=== PATIENT | male | born 1975 ===

== ENCOUNTER 2020-06-25 09:20 | Outpatient (REF) | payer BC, SELFPAY ==
[2020-06-25 11:21] LABS: MANUAL DIFF FLAG NO
[2020-06-25 11:42] LABS: Basophils Absolute Auto 0.1 X10*3/uL (0.0-0.2); Basophils Percent Auto 0.6 % (0-2); Eosinophils Absolute Auto 0.1 X10*3/uL (0.0-0.4); Eosinophils Percent Auto 0.7 % (0-4); Hematocrit 48.6 % (42-52); Hemoglobin 16.1 g/dl (14.0-18.0); Imm Gran Pct Auto 0.6 % (0.0-0.4); Lymphocytes Absolute Auto 3.2 X10*3/uL (1.2-4.9); Lymphocytes Percent Auto 19.6 % (20-40); Mean Corpuscular HGB Conc 33.1 g/dl (31.0-36.0); Mean Corpuscular Hemoglobin 29.1 pg (27.0-33.0); Mean Corpuscular Volume 87.7 fL (80-98); Mean Platelet Volume 11.9 fL (9.4-12.4); Monocytes Absolute Auto 0.9 X10*3/uL (0.1-1.2); Monocytes Percent Auto 5.8 % (2-11); Neutrophils Absolute Auto 11.7 X10*3/uL (2.0-8.3); Neutrophils Percent Auto 72.7 % (45-73); Platelet Count 226 X10*3/uL (160-400); Red Blood Count 5.54 X10*6/uL (4.60-5.80); Red Cell Distribution Width 13.5 % (11.0-16.0); White Blood Count 16.1 X10*3/uL (4.8-10.8)
[2020-06-25 12:09] LABS: Alanine Aminotransferase 15 U/L (0-40); Albumin Level 4.6 g/dL (3.5-5.0); Alkaline Phosphatase 82 U/L (39-117); Anion Gap 12 (12-20); Aspartate Amino Transferase 17 U/L (5-37); Bilirubin Direct < 0.2 mg/dL (0.0-0.5); Bilirubin Total 0.5 mg/dL (0.0-1.0); Blood Urea Nitrogen 19 mg/dL (9-16); Carbon Dioxide 28 mmol/L (22-29); Chloride 105 mmol/L (96-108); Cholesterol 242 mg/dL; Estimated Glomerular Filt Rate > 60; Glucose Fasting 106 mg/dL (60-99); HDL Cholesterol 38 mg/dL; LDL Cholesterol Calculated 172 mg/dl; Potassium 4.1 mmol/L (3.3-5.1); Sodium 141 mmol/L (135-145); Total Protein 6.8 g/dL (6.5-8.0); Triglycerides 163 mg/dL
[2020-06-25 12:30] LABS: Prostate Specific Antigen 0.66 ng/mL (<0.05-4.0); TSH reflex Free T4 0.95 uIU/mL (0.32-4.0)
== END 2020-06-25 09:21 | disposition home or self-care (01) ==
LOC: HO.HMGCLDS 09:20
PROVIDERS: PCP Internal Medicine; Visit Provider Internal Medicine
DX: I10 Essential (primary) hypertension (principal); R39.198 Other difficulties with micturition; R00.0 Tachycardia, unspecified; F41.9 Anxiety disorder, unspecified; Z76.89 Persons encountering health services in other specified circumstances; Z12.5 Encounter for screening for malignant neoplasm of prostate
CPT/HCPCS: 36415; 80048; 80061; 80076; 84153; 84443; 85025

== ENCOUNTER 2021-09-25 10:02 | Outpatient (REF) | payer BC, SELFPAY ==
[2021-09-25 11:11] LABS: MANUAL DIFF FLAG NO
[2021-09-25 11:35] LABS: Appearance Urine HAZY; Color Urine YELLOW; Glucose Urine UA NEG (NEG); Leukocyte Esterase Urine NEG (NEG); Nitrite Urine NEG (NEG); Specific Gravity - Urine 1.015 (1.005-1.025); UACC Culture Trigger NO; Urine Blood TRACE (NEG); Urine Ketones NEG (NEG); Urine Protein NEG (NEG-TRACE)
[2021-09-25 11:39] LABS: Basophils Absolute Auto 0.1 X10*3/uL (0.0-0.2); Basophils Percent Auto 0.7 % (0-2); Eosinophils Absolute Auto 0.2 X10*3/uL (0.0-0.4); Eosinophils Percent Auto 1.2 % (0-4); Hematocrit 44.2 % (42.0-52.0); Hemoglobin 14.5 g/dl (14.0-18.0); Imm Gran Abs Auto 0.05 X10*3/uL (0.00-0.03); Imm Gran Pct Auto 0.3 % (0.0-0.4); Lymphocytes Absolute Auto 3.3 X10*3/uL (1.2-4.9); Lymphocytes Percent Auto 22.1 % (20-40); Mean Corpuscular HGB Conc 32.8 g/dl (31.0-36.0); Mean Corpuscular Hemoglobin 28.5 pg (27.0-33.0); Mean Platelet Volume 11.7 fL (9.4-12.4); Monocytes Absolute Auto 1.2 X10*3/uL (0.1-1.2); Monocytes Percent Auto 7.7 % (2-11); Neutrophils Absolute Auto 10.1 x10*3/uL (2.0-8.3); Platelet Count 224 X10*3/uL (160-400); Red Blood Count 5.08 X10*6/uL (4.60-5.80); Red Cell Distribution Width 13.8 % (11.0-16.0); White Blood Count 14.9 X10*3/uL (4.8-10.8)
[2021-09-25 12:14] LABS: Mucus Urine 1+ /LPF; Squamous Epithelial Cell Urine TRACE /LPF; WBC Urine 0-2 /HPF (0-4)
[2021-09-25 12:18] LABS: Alanine Aminotransferase 29 U/L (0-40); Albumin Level 4.3 g/dL (3.5-5.0); Alkaline Phosphatase 78 U/L (39-117); Anion Gap 11 (12-20); Aspartate Amino Transferase 39 U/L (5-37); Bilirubin Total 0.2 mg/dL (0.0-1.0); Blood Urea Nitrogen 12 mg/dL (9-16); Calcium 9.4 mg/dL (8.4-10.2); Carbon Dioxide 27 mmol/L (22-29); Chloride 105 mmol/L (96-108); Cholesterol 225 mg/dL; Estimated Glomerular Filt Rate > 60; Glucose Fasting 109 mg/dL (60-99); HDL Cholesterol 36 mg/dL; LDL Cholesterol Calculated 166 mg/dl; Potassium 3.8 mmol/L (3.3-5.1); Sodium 139 mmol/L (135-145); Total Protein 6.5 g/dL (6.5-8.0); Triglycerides 117 mg/dL
[2021-09-25 12:26] LABS: Prostate Specific Antigen 0.42 ng/mL (<0.05-4.0); TSH reflex Free T4 0.92 uIU/mL (0.32-4.0)
== END 2021-09-25 10:03 | disposition home or self-care (01) ==
LOC: HO.HMGCLDS 10:02
PROVIDERS: PCP Internal Medicine; Visit Provider Internal Medicine
DX: Z12.5 Encounter for screening for malignant neoplasm of prostate (principal); F41.9 Anxiety disorder, unspecified; I10 Essential (primary) hypertension; R00.0 Tachycardia, unspecified; R39.198 Other difficulties with micturition
CPT/HCPCS: 36415; 80053; 80061; 81001; 84153; 84443; 85025

== ENCOUNTER 2022-01-08 08:30 | Outpatient (REF) | payer BC, SELFPAY ==
[2022-01-08 11:49] LABS: Estimated Average Glucose 100 mg/dL; Hemoglobin A1c % 5.1 %
[2022-01-08 12:00] LABS: Alanine Aminotransferase 22 U/L (0-40); Albumin Level 4.4 g/dL (3.5-5.0); Alkaline Phosphatase 80 U/L (39-117); Anion Gap 13 (12-20); Aspartate Amino Transferase 21 U/L (5-37); Bilirubin Total 0.3 mg/dL (0.0-1.0); Blood Urea Nitrogen 14 mg/dL (9-16); Calcium 9.6 mg/dL (8.4-10.2); Carbon Dioxide 26 mmol/L (22-29); Chloride 104 mmol/L (96-108); Cholesterol 132 mg/dL; Estimated Glomerular Filt Rate > 60; Glucose Fasting 103 mg/dL (60-99); HDL Cholesterol 34 mg/dL; LDL Cholesterol Calculated 81 mg/dl; Potassium 4.1 mmol/L (3.3-5.1); Sodium 139 mmol/L (135-145); Total Protein 6.7 g/dL (6.5-8.0); Triglycerides 89 mg/dL
== END 2022-01-08 08:31 | disposition home or self-care (01) ==
LOC: HO.HMGCLDS 08:30
PROVIDERS: PCP Internal Medicine; Visit Provider Internal Medicine
DX: E78.9 Disorder of lipoprotein metabolism, unspecified (principal); I10 Essential (primary) hypertension; R73.03 Prediabetes
CPT/HCPCS: 36415; 80053; 80061; 83036

== ENCOUNTER 2022-08-21 09:54 | Outpatient (REF) | payer BC, SELFPAY ==
[2022-08-21 11:04] LABS: MANUAL DIFF FLAG NO
[2022-08-21 11:46] LABS: Basophils Absolute Auto 0.1 X10*3/uL (0.0-0.2); Basophils Percent Auto 0.7 % (0-2); Eosinophils Absolute Auto 0.2 X10*3/uL (0.0-0.4); Eosinophils Percent Auto 1.2 % (0-4); Hematocrit 47.7 % (42.0-52.0); Hemoglobin 15.8 g/dl (14.0-18.0); Imm Gran Abs Auto 0.06 X10*3/uL (0.00-0.03); Imm Gran Pct Auto 0.4 % (0.0-0.4); Lymphocytes Percent Auto 26.4 % (20-40); Mean Corpuscular HGB Conc 33.1 g/dl (31.0-36.0); Mean Corpuscular Hemoglobin 29.5 pg (27.0-33.0); Mean Platelet Volume 11.6 fL (9.4-12.4); Monocytes Percent Auto 6.5 % (2-11); Neutrophils Absolute Auto 9.7 x10*3/uL (2.0-8.3); Neutrophils Percent Auto 64.8 % (45-73); Platelet Count 221 X10*3/uL (160-400); Red Blood Count 5.36 X10*6/uL (4.60-5.80); Red Cell Distribution Width 13.4 % (11.0-16.0)
[2022-08-21 11:55] LABS: Estimated Average Glucose 105 mg/dL; Hemoglobin A1c % 5.3 %
[2022-08-21 12:15] LABS: Anion Gap 11 (12-20)
[2022-08-21 12:49] LABS: Alanine Aminotransferase 19 U/L (0-40); Albumin Level 4.6 g/dL (3.5-5.0); Alkaline Phosphatase 85 U/L (39-117); Aspartate Amino Transferase 18 U/L (5-37); Bilirubin Total 0.4 mg/dL (0.0-1.0); Blood Urea Nitrogen 18 mg/dL (9-16); Calcium 9.3 mg/dL (8.4-10.2); Carbon Dioxide 28 mmol/L (22-29); Chloride 107 mmol/L (96-108); Cholesterol 129 mg/dL; Estimated Glomerular Filt Rate > 60; Glucose Fasting 113 mg/dL (60-99); HDL Cholesterol 33 mg/dL; LDL Cholesterol Calculated 79 mg/dl; Potassium 4.8 mmol/L (3.3-5.1); Sodium 141 mmol/L (135-145); Total Protein 6.7 g/dL (6.5-8.0); Triglycerides 88 mg/dL
== END 2022-08-21 09:55 | disposition home or self-care (01) ==
LOC: HO.HMGCLDS 09:54
PROVIDERS: PCP Internal Medicine; Visit Provider Internal Medicine
DX: E78.9 Disorder of lipoprotein metabolism, unspecified (principal); F41.9 Anxiety disorder, unspecified; R73.03 Prediabetes; I10 Essential (primary) hypertension
CPT/HCPCS: 36415; 80053; 80061; 83036; 85025

== ENCOUNTER 2022-10-07 09:28 | Outpatient (REF) | payer BC, SELFPAY ==
[2022-10-07 11:26] LABS: MANUAL DIFF FLAG NO
[2022-10-07 11:31] LABS: Basophils Absolute Auto 0.2 X10*3/uL (0.0-0.2); Eosinophils Absolute Auto 0.2 X10*3/uL (0.0-0.4); Hematocrit 45.8 % (42.0-52.0); Imm Gran Abs Auto 0.07 X10*3/uL (0.00-0.03); Imm Gran Pct Auto 0.5 % (0.0-0.4); Lymphocytes Absolute Auto 3.5 X10*3/uL (1.2-4.9); Lymphocytes Percent Auto 22.7 % (20-40); Mean Corpuscular HGB Conc 32.8 g/dl (31.0-36.0); Mean Corpuscular Hemoglobin 29.4 pg (27.0-33.0); Mean Corpuscular Volume 89.8 fL (80.0-98.0); Mean Platelet Volume 11.9 fL (9.4-12.4); Monocytes Absolute Auto 1.2 X10*3/uL (0.1-1.2); Monocytes Percent Auto 7.6 % (2-11); Neutrophils Absolute Auto 10.4 x10*3/uL (2.0-8.3); Neutrophils Percent Auto 67.2 % (45-73); Platelet Count 216 X10*3/uL (160-400); Red Cell Distribution Width 13.7 % (11.0-16.0); White Blood Count 15.4 X10*3/uL (4.8-10.8)
== END 2022-10-07 09:29 | disposition home or self-care (01) ==
LOC: HO.HMGCLDS 09:28
PROVIDERS: PCP Internal Medicine; Visit Provider Internal Medicine
DX: D72.829 Elevated white blood cell count, unspecified (principal)
CPT/HCPCS: 36415; 85025

== ENCOUNTER → 2022-11-10 12:36 | Outpatient (BNV) | payer BC, SELFPAY | PROVIDERS: PCP Internal Medicine; Visit Provider Internal Medicine | DX: D72.829 Elevated white blood cell count, unspecified (principal) | CPT/HCPCS: 99204; 99213 ==

== ENCOUNTER 2023-01-27 09:49 | Outpatient (AMB) | payer BC, SELFPAY ==
[2023-01-27 09:51] VITALS: BP 136/72; PULSE 69; O2SAT 98; BMI 27.5
--- NOTE | 2023-01-27 09:51 | A.OFFPC_ITS ---
Vital Signs 01/27/23 09:51 Height 5 ft 10 in Weight 192 lb BMI 27.5 BP 136/72 Blood Pressure Location Lt brachial Position Sitting Pulse 69 Pulse Source Pulse Oximeter Pulse Oximetry (%) 98 Oxygen Delivery Method Room Air Intake Visit Reasons: 3 month follow up Allergies No Known Allergies [No Known Allergies*] Allergy (Verified 01/27/23 09:52) Medication List - Last Reconciled 01/27/23 by Micah Alvarez MD atenolol 25 mg PO DAILY 90 days escitalopram oxalate (Lexapro) 10 mg PO DAILY rosuvastatin 40 mg PO DAILY 90 days Tobacco use date assessed: 01/27/23 Dental Screening Dental Screen Date: 01/27/23 Did you have a dental visit in the last 12 months?: No Did you have a dental problem in the last 6 months where you did not have access to dental care?: No Was dental information given to patient?: Patient has dentist HPI 3 month follow up HPI Details Patient is 47-year-old gentleman came in today for his regular follow- up appointment Patient is trying to cut down on smoking currently he is smoking 7 cigarettes a day. Patient says that he never had any history of smoking cold pack for more than 30 years. It is difficult but he is working on it and gradually cutting down on smoking. He has tried other methods which have failed. Blood pressure is stable patient is on atenolol 25 mg tolerating medications, no side effects. Anxiety: Stable with Lexapro 10 mg Lipid disorder: Continue rosuvastatin 40 mg, he is due for labs. Leukocytosis: Patient has been evaluated by Hematology no cause was found for his chronic leukocytosis. Most likely secondary to smoking. Impaired fasting sugar: I would recommend continue diet control. Follow-up early May [facility] Surgical History History of tooth extraction Family History Maternal Grandfather Prostate CA Maternal Grandmother Dementia Alzheimer disease Depression Paternal Grandmother Dementia Alzheimer disease Sister Lupus Social History Household Members: Friend(s) Housing: House Alcohol intake: current Alcohol intake frequency: holidays/special occasions only Patient Tobacco Use Status: Current everyday Tobacco user Tobacco use type: Cigarette Cigarette Packs Per Day: 0.5 Years Smoked: 23 e-Cigarette/Vaping Use: Never Used service: No Current occupational status: employed Cognitive needs: No Hearing needs: No Vision needs: No Questionnaire PHQ-9 Over the last 2 weeks, how often have you been bothered by any of the following problems? 1. Little interest or pleasure in doing things: not at all 2. Feeling down, depressed, or hopeless: not at all 3. Trouble falling or staying asleep, or sleeping too much: several days 4. Feeling tired or having little energy: several days 5. Poor appetite or overeating: not at all 6. Feeling bad about yourself - or that you are a failure or have let yourself or your family down: not at all 7. Trouble concentrating on things, such as reading the newspaper or watching television: not at all 8. Moving or speaking so slowly that other people could have noticed. Or the opposite - being so fidgety or restless that you have been moving around a lot more than usual: not at all 9. Thoughts that you would be better off or of hurting yourself in some way: not at all Total score: 2 Depression Screening Interpretation: Negative 43741 - PHQ-9 Billing: Yes Source: Developed by Drs. Eduardo Cartwright, Swetha Tapia, Jackson Thrasher and colleagues, with an educational paula from [employer]. Thrive Questionnaire Date Thrive assessed: 01/27/23 I am a: Patient What is your living situation today?: I have a steady place to live Within the past 12 months, did the food you bought not last and you didn't have the money to get more?: Never true Within the past 12 months, did you worry whether your food would run out before you got money to buy more?: Never true Do you have trouble paying for medicines?: No Do you have trouble getting transportation to medical appointments?: No Do you have trouble paying your heating and electricity bill?: No Do you have trouble taking care of your child, family member or friend?: No Do you have trouble with day-to-day activities such as bathing, preparing meals, shopping, managing finances, etc.?: No Are you currently unemployed and looking for a job?: No Are you interested in more education?: No Please select the resources that you would like help with: None AUDIT C Alcohol Use Questionnaire (AUDIT-C) 1. How often do you have a drink containing alcohol?: Monthly or less 2. How many drinks containing alcohol do you have on a typical day when you are drinking?: 3 or 4 3. How often do you have six or more drinks on one occasion?: Never Total Score: 2 VINCENT-7 AMB Questionnaire VINECNT-7 Date VINCENT - 7 assessed: 01/27/23 Feeling nervous, anxious, or on edge: 1 = Several days Not being able to stop or control worryin = Not at all Worrying too much about different things: 0 = Not at all Trouble relaxin = Not at all Being so restless that it is hard to sit still: 0 = Not at all Becoming easily annoyed or irritable: 0 = Not at all Feeling afraid as if something awful might happen: 0 = Not at all Total VINCENT-7 score (0-4 normal; 5-9 mild; 10-14 moderate; 15-21 severe): 1 Source: Developed by Drs. Eduardo Cartwright, Swetha Tapia, Jackson Thrasher and colleagues, with an educational paula from [employer]. VINCENT-7 Assessment Billing VINCENT-7 Assessment Tool: VINCENT-7 Assessment 68136 Review of Systems Const Denies chills and Denies fever(s) ENT Denies epistaxis and Denies nasal discharge Card Denies chest pain Resp Denies chest congestion, Denies cough and Denies hemoptysis GI Denies diarrhea and Denies nausea Skin/Breast Denies rash Neuro Reports no additional complaints Psych Reports no additional complaints Endo Reports no additional complaints Physical exam (Primary Care) Vital Signs: Last Vital Signs Pulse 69 01/27/23 09:51 BP 136/72 01/27/23 09:51 Pulse Ox 98 01/27/23 09:51 Oxygen Delivery Method Room Air 01/27/23 09:51 BMI result Body Mass Index 27.5 Tobacco/Smoking Status: Tobacco use Status Tobacco use date assessed 01/27/23 01/27/23 09:52 Patient Tobacco Use Status Current everyday Tobacco 01/27/23 09:52 Tobacco use type Cigarette 01/27/23 09:52 e-Cigarette/Vaping Use Never Used 01/27/23 09:52 Are you ready to quit: Yes Tobacco cessation counseling provided: Yes Relapse Prevention: discussed the importance of a supportive environment and discussed dietary, exercise and/or lifestyle changes CPT code: 86003 - 4-10 Minutes PHQ-9: PHQ-9 Score PHQ-9: Total score 2 01/27/23 11:08 Depression Screening Interpretation: Negative Thrive Assessment: Date of Thrive Assessment Date Thrive assessed 01/27/23 01/27/23 10:23 Const General: cooperative, comfortable and no acute distress Orientation/consciousness: patient oriented x3 HENMT Head: Yes normocephalic Eyes General: appearance normal, both eyes and all related structures Neck Neck: Yes supple Resp Effort & Inspection: normal respiratory effort, no cough and no stridor Cardio Rhythm: regular rhythm Heart sounds: S1 normal heart sound present and S2 normal heart sound present Skin General skin exam: turgor normal Neuro General: patient oriented x3, tone normal and moves all extremities Extrem Right lower extremity: no edema Left lower extremity: no edema Assessment and Plan Assessment & Plan (1) Hypertension: Code(s): I10 - Essential (primary) hypertension Qualifiers: Hypertension type: primary hypertension Qualified Code(s): I10 - Essential (primary) hypertension (2) Anxiety: Code(s): F41.9 - Anxiety disorder, unspecified (3) Lipid disorder: Code(s): E78.9 - Disorder of lipoprotein metabolism, unspecified (4) Pre-diabetes: Code(s): R73.03 - Prediabetes (5) Tobacco use disorder: Code(s): F17.200 - Nicotine dependence, unspecified, uncomplicated (6) Leukocytosis: Code(s): D72.829 - Elevated white blood cell count, unspecified Qualifiers: Leukocytosis type: unspecified Qualified Code(s): D72.829 - Elevated white blood cell count, unspecified (7) Encounter for tobacco use cessation counseling: Code(s): Z71.6 - Tobacco abuse counseling Plan Patient is 47-year-old gentleman came in today for his regular follow-up appointment Patient is trying to cut down on smoking currently he is smoking 7 cigarettes a day. Patient says that he never had any history of smoking cold pack for more than 30 years. It is difficult but he is working on it and gradually cutting down on smoking. He has tried other methods which have failed. Blood pressure is stable patient is on atenolol 25 mg tolerating medications, no side effects. Anxiety: Stable with Lexapro 10 mg Lipid disorder: Continue rosuvastatin 40 mg, he is due for labs. Leukocytosis: Patient has been evaluated by Hematology no cause was found for his chronic leukocytosis. Most likely secondary to smoking. Impaired fasting sugar: I would recommend continue diet control. Follow-up early May Orders: Orders Hemoglobin A1c Today D72.829 - Elevated white blood cell count, unspecified, E78.9 - Disorder of lipoprotein metabolism, unspecified, F17.200 - Nicotine dependence, unspecified, uncomplicated, F41.9 - Anxiety disorder, unspecified, I10 - Essential (primary) hypertension, R73.03 - Prediabetes Complete Blood Count Auto Diff Today D72.829 - Elevated white blood cell count, unspecified, E78.9 - Disorder of lipoprotein metabolism, unspecified, F17.200 - Nicotine dependence, unspecified, uncomplicated, F41.9 - Anxiety disorder, unspecified, I10 - Essential (primary) hypertension, R73.03 - Prediabetes Comprehensive Met. Panel Today D72.829 - Elevated white blood cell count, unspecified, E78.9 - Disorder of lipoprotein metabolism, unspecified, F17.200 - Nicotine dependence, unspecified, uncomplicated, F41.9 - Anxiety disorder, unspecified, I10 - Essential (primary) hypertension, R73.03 - Prediabetes LDL Cholesterol Direct Today D72.829 - Elevated white blood cell count, unspecified, E78.9 - Disorder of lipoprotein metabolism, unspecified, F17.200 - Nicotine dependence, unspecified, uncomplicated, F41.9 - Anxiety disorder, unspecified, I10 - Essential (primary) hypertension, R73.03 - Prediabetes Coding Level of Care Code Est Pt Level 4 (19943) Diagnoses Primary hypertension I10 Hypertension type: primary hypertension Anxiety F41.9 Lipid disorder E78.9 Pre-diabetes R73.03 Tobacco use disorder F17.200 Leukocytosis, unspecified type D72.829 Leukocytosis type: unspecified Encounter for tobacco use cessation counseling Z71.6 Additional Codes VINCENT-7 Assessment Billing - VINCENT-7 Assessment Tool: VINCENT-7 Assessment 26044 ([id number]) Vital Signs *Quality* - CPT code: 69606 - 4-10 Minutes ([id number])
== END 2023-01-27 10:18 | disposition home or self-care (01) ==
PROVIDERS: PCP Internal Medicine; Visit Provider Internal Medicine
DX: I10 Essential (primary) hypertension (principal); F41.9 Anxiety disorder, unspecified; E78.9 Disorder of lipoprotein metabolism, unspecified; R73.03 Prediabetes; F17.200 Nicotine dependence, unspecified, uncomplicated; D72.829 Elevated white blood cell count, unspecified; Z71.6 Tobacco abuse counseling
CPT/HCPCS: 99214

== ENCOUNTER 2023-02-17 11:32 | Outpatient (REF) | payer BC, SELFPAY ==
[2023-02-17 13:30] LABS: MANUAL DIFF FLAG NO
[2023-02-17 13:54] LABS: Basophils Absolute Auto 0.1 X10*3/uL (0.0-0.2); Basophils Percent Auto 0.8 % (0-2); Eosinophils Absolute Auto 0.1 X10*3/uL (0.0-0.4); Eosinophils Percent Auto 0.7 % (0-4); Hemoglobin 15.9 g/dl (14.0-18.0); Imm Gran Abs Auto 0.08 X10*3/uL (0.00-0.03); Imm Gran Pct Auto 0.5 % (0.0-0.4); Lymphocytes Absolute Auto 3.9 X10*3/uL (1.2-4.9); Lymphocytes Percent Auto 26.4 % (20-40); Mean Corpuscular HGB Conc 33.8 g/dl (31.0-36.0); Mean Corpuscular Hemoglobin 30.1 pg (27.0-33.0); Mean Corpuscular Volume 88.8 fL (80.0-98.0); Mean Platelet Volume 11.5 fL (9.4-12.4); Monocytes Percent Auto 6.9 % (2-11); Neutrophils Absolute Auto 9.6 x10*3/uL (2.0-8.3); Neutrophils Percent Auto 64.7 % (45-73); Platelet Count 270 X10*3/uL (160-400); Red Blood Count 5.29 X10*6/uL (4.60-5.80); Red Cell Distribution Width 13.2 % (11.0-16.0); White Blood Count 14.8 X10*3/uL (4.8-10.8)
[2023-02-17 14:14] LABS: Alanine Aminotransferase 26 U/L (0-40); Albumin Level 4.5 g/dL (3.5-5.0); Alkaline Phosphatase 79 U/L (39-117); Anion Gap 13 (12-20); Aspartate Amino Transferase 22 U/L (5-37); Bilirubin Total 0.3 mg/dL (0.0-1.0); Blood Urea Nitrogen 13 mg/dL (9-16); Calcium 9.7 mg/dL (8.4-10.2); Carbon Dioxide 26 mmol/L (22-29); Chloride 107 mmol/L (96-108); Estimated Glomerular Filt Rate > 60; Glucose Random 107 mg/dL (60-115); Potassium 4.3 mmol/L (3.3-5.1); Sodium 142 mmol/L (135-145); Total Protein 7.1 g/dL (6.5-8.0)
[2023-02-17 14:26] LABS: Estimated Average Glucose 100 mg/dL; Hemoglobin A1c % 5.1 % (<6.0)
[2023-02-19 08:19] LABS: LDL Cholesterol Direct 88 mg/dL (<100)
== END 2023-02-17 11:33 | disposition home or self-care (01) ==
LOC: HO.HMGCLDS 11:32
PROVIDERS: PCP Internal Medicine; Visit Provider Internal Medicine
DX: I10 Essential (primary) hypertension (principal); F41.9 Anxiety disorder, unspecified; E78.9 Disorder of lipoprotein metabolism, unspecified; R73.03 Prediabetes; D72.829 Elevated white blood cell count, unspecified; F17.200 Nicotine dependence, unspecified, uncomplicated
CPT/HCPCS: 36415; 80053; 83036; 83721; 85025

== ENCOUNTER 2023-05-29 09:22 | Outpatient (AMB) | payer BC, SELFPAY ==
[2023-05-29 09:24] VITALS: BP 132/80; PULSE 96; O2SAT 98; BMI 28.6
--- NOTE | 2023-05-29 09:24 | MHC.PC.OV ---
Vital Signs 05/29/23 09:24 Height 5 ft 10 in Weight 199 lb BMI 28.6 BP 132/80 Blood Pressure Location Lt brachial Position Sitting Pulse 96 Pulse Source Pulse Oximeter Pulse Oximetry (%) 98 Oxygen Delivery Method Room Air Intake Visit Reasons: 3 month follow up Allergies No Known Allergies [No Known Allergies*] Allergy (Verified 05/29/23 09:24) Tobacco use date assessed: 05/29/23 Dental Screening Dental Screen Date: 05/29/23 Did you have a dental visit in the last 12 months?: No Did you have a dental problem in the last 6 months where you did not have access to dental care?: No Was dental information given to patient?: No HPI 3 month follow up HPI Details Patient is 48-year-old gentleman came in today for his regular follow-up appointment Tobacco use disorder: Patient has cut down to 6 cigarettes a day, we have set up another goal of getting down to 5 by the time his next appointment in September He will also need labs before his next appointment, order placed to be done fasting Blood pressure is stable patient is on atenolol 25 mg tolerating medications, no side effects. Anxiety: Stable with Lexapro 10 mg Lipid disorder: Continue rosuvastatin 40 mg, he is due for labs. Leukocytosis: Patient has been evaluated by Hematology no cause was found for his chronic leukocytosis. Most likely secondary to smoking. Impaired fasting sugar: I would recommend continue diet control. [facility] Surgical History History of tooth extraction Family History Maternal Grandfather Prostate CA Maternal Grandmother Dementia Alzheimer disease Depression Paternal Grandmother Dementia Alzheimer disease Sister Lupus Social History Household Members: Friend(s) Housing: House Alcohol intake: current Alcohol intake frequency: holidays/special occasions only Patient Tobacco Use Status: Current everyday Tobacco user Tobacco use type: Cigarette Cigarette Packs Per Day: 0.5 Years Smoked: 23 e-Cigarette/Vaping Use: Never Used service: No Current occupational status: employed Cognitive needs: No Hearing needs: No Vision needs: No Questionnaire PHQ-9 Over the last 2 weeks, how often have you been bothered by any of the following problems? 1. Little interest or pleasure in doing things: not at all 2. Feeling down, depressed, or hopeless: not at all 3. Trouble falling or staying asleep, or sleeping too much: not at all 4. Feeling tired or having little energy: several days 5. Poor appetite or overeating: not at all 6. Feeling bad about yourself - or that you are a failure or have let yourself or your family down: not at all 7. Trouble concentrating on things, such as reading the newspaper or watching television: not at all 8. Moving or speaking so slowly that other people could have noticed. Or the opposite - being so fidgety or restless that you have been moving around a lot more than usual: not at all 9. Thoughts that you would be better off or of hurting yourself in some way: not at all Total score: 1 Depression Screening Interpretation: Negative Depression Screening Done: Yes 10096 - PHQ-9 Billing: Yes Source: Developed by Drs. Eduardo Cartwright, Swetha Tapia, Jackson Thrasher and colleagues, with an educational paula from [employer]. Thrive Questionnaire Date Thrive assessed: 05/29/23 I am a: Patient What is your living situation today?: I have a steady place to live Within the past 12 months, did the food you bought not last and you didn't have the money to get more?: Never true Within the past 12 months, did you worry whether your food would run out before you got money to buy more?: Never true Do you have trouble paying for medicines?: No Do you have trouble getting transportation to medical appointments?: No Do you have trouble paying your heating and electricity bill?: No Do you have trouble taking care of your child, family member or friend?: No Do you have trouble with day-to-day activities such as bathing, preparing meals, shopping, managing finances, etc.?: No Are you currently unemployed and looking for a job?: No Are you interested in more education?: No Please select the resources that you would like help with: None Currently or been in a relationship where the following occur: no concerns reported THRIVE Score: 0 AUDIT C Alcohol Use Questionnaire (AUDIT-C) 1. How often do you have a drink containing alcohol?: Monthly or less 2. How many drinks containing alcohol do you have on a typical day when you are drinking?: 3 or 4 3. How often do you have six or more drinks on one occasion?: Never Total Score: 2 Score Reviewed/Action Taken: Yes VINCENT-7 AMB Questionnaire VINCENT-7 Date VINCENT - 7 assessed: 05/29/23 Feeling nervous, anxious, or on edge: 1 = Several days Not being able to stop or control worryin = Not at all Worrying too much about different things: 0 = Not at all Trouble relaxin = Not at all Being so restless that it is hard to sit still: 0 = Not at all Becoming easily annoyed or irritable: 0 = Not at all Feeling afraid as if something awful might happen: 0 = Not at all Total VINCENT-7 score (0-4 normal; 5-9 mild; 10-14 moderate; 15-21 severe): 1 Source: Developed by Drs. Eduardo Cartwright, Swetha Tapia, Jackson Thrasher and colleagues, with an educational paula from [employer]. VINCENT-7 Assessment Billing VINCENT-7 Assessment Tool: VINCENT-7 Assessment 42428 Review of Systems Const Denies chills and Denies fever(s) ENT Denies epistaxis and Denies nasal discharge Card Denies chest pain Resp Denies chest congestion, Denies cough and Denies hemoptysis GI Denies diarrhea and Denies nausea Skin/Breast Denies rash Neuro Reports no additional complaints Psych Reports no additional complaints Endo Reports no additional complaints Physical exam (Primary Care) Vital Signs: Last Vital Signs Pulse 96 05/29/23 09:24 BP 132/80 05/29/23 09:24 Pulse Ox 98 05/29/23 09:24 Oxygen Delivery Method Room Air 05/29/23 09:24 BMI result Body Mass Index 28.6 Tobacco/Smoking Status: Tobacco use Status Tobacco use date assessed 05/29/23 05/29/23 09:26 Patient Tobacco Use Status Current everyday Tobacco 05/29/23 09:26 Tobacco use type Cigarette 05/29/23 09:26 e-Cigarette/Vaping Use Never Used 05/29/23 09:26 Are you ready to quit: No Tobacco cessation counseling provided: Yes Items discussed: Other (Encouraged patient to keep reducing the amount he is smoking gradually and set up a new goal) PHQ-9: PHQ-9 Score PHQ-9: Total score 1 05/29/23 09:31 Depression Screening Interpretation: Negative Thrive Assessment: Date of Thrive Assessment Date Thrive assessed 05/29/23 05/29/23 09:31 Currently or been in a relationship where the following occur: no concerns reported Const General: cooperative, comfortable and no acute distress Orientation/consciousness: patient oriented x3 HENMT Head: Yes normocephalic Eyes General: appearance normal, both eyes and all related structures Neck Neck: Yes supple Resp Effort & Inspection: normal respiratory effort, no cough and no stridor Cardio Rhythm: regular rhythm Heart sounds: S1 normal heart sound present and S2 normal heart sound present Skin General skin exam: turgor normal Neuro General: patient oriented x3, tone normal and moves all extremities Extrem Right lower extremity: no edema Left lower extremity: no edema Assessment and Plan Assessment & Plan (1) Hypertension: Code(s): I10 - Essential (primary) hypertension Qualifiers: Hypertension type: primary hypertension Qualified Code(s): I10 - Essential (primary) hypertension (2) Lipid disorder: Code(s): E78.9 - Disorder of lipoprotein metabolism, unspecified (3) Pre-diabetes: Code(s): R73.03 - Prediabetes (4) Anxiety: Code(s): F41.9 - Anxiety disorder, unspecified (5) Leukocytosis: Code(s): D72.829 - Elevated white blood cell count, unspecified Qualifiers: Leukocytosis type: unspecified Qualified Code(s): D72.829 - Elevated white blood cell count, unspecified (6) Tobacco use disorder: Code(s): F17.200 - Nicotine dependence, unspecified, uncomplicated Plan Patient is 48-year-old gentleman came in today for his regular follow-up appointment Tobacco use disorder: Patient has cut down to 6 cigarettes a day, we have set up another goal of getting down to 5 by the time his next appointment in September He will also need labs before his next appointment, order placed to be done fasting Blood pressure is stable patient is on atenolol 25 mg tolerating medications, no side effects. Anxiety: Stable with Lexapro 10 mg Lipid disorder: Continue rosuvastatin 40 mg, he is due for labs. Leukocytosis: Patient has been evaluated by Hematology no cause was found for his chronic leukocytosis. Most likely secondary to smoking. Impaired fasting sugar: I would recommend continue diet control. Orders: Orders Complete Blood Count Auto Diff 5 Months D72.829 - Elevated white blood cell count, unspecified, E78.9 - Disorder of lipoprotein metabolism, unspecified, F17.200 - Nicotine dependence, unspecified, uncomplicated, F41.9 - Anxiety disorder, unspecified, I10 - Essential (primary) hypertension, R73.03 - Prediabetes Lipid Panel 5 Months D72.829 - Elevated white blood cell count, unspecified, E78.9 - Disorder of lipoprotein metabolism, unspecified, F17.200 - Nicotine dependence, unspecified, uncomplicated, F41.9 - Anxiety disorder, unspecified, I10 - Essential (primary) hypertension, R73.03 - Prediabetes Comprehensive [place]. Panel Fast 5 Months D72.829 - Elevated white blood cell count, unspecified, E78.9 - Disorder of lipoprotein metabolism, unspecified, F17.200 - Nicotine dependence, unspecified, uncomplicated, F41.9 - Anxiety disorder, unspecified, I10 - Essential (primary) hypertension, R73.03 - Prediabetes Coding Level of Care Code Est Pt Level 4 (30547) Diagnoses Primary hypertension I10 Hypertension type: primary hypertension Lipid disorder E78.9 Pre-diabetes R73.03 Anxiety F41.9 Leukocytosis, unspecified type D72.829 Leukocytosis type: unspecified Tobacco use disorder F17.200 Additional Codes VINCENT-7 Assessment Billing - VINCENT-7 Assessment Tool: VINCENT-7 Assessment 87694 ([id number])
== END 2023-05-29 12:01 | disposition home or self-care (01) ==
PROVIDERS: PCP Internal Medicine; Visit Provider Internal Medicine
DX: I10 Essential (primary) hypertension (principal); E78.9 Disorder of lipoprotein metabolism, unspecified; R73.03 Prediabetes; F41.9 Anxiety disorder, unspecified; D72.829 Elevated white blood cell count, unspecified; F17.210 Nicotine dependence, cigarettes, uncomplicated
CPT/HCPCS: 99214

== ENCOUNTER 2023-10-07 08:19 | Outpatient (REF) | payer BC, SELFPAY ==
[2023-10-07 10:26] LABS: MANUAL DIFF FLAG NO
[2023-10-07 10:41] LABS: Basophils Absolute Auto 0.1 X10*3/uL (0.0-0.2); Basophils Percent Auto 0.7 % (0-2); Eosinophils Absolute Auto 0.2 X10*3/uL (0.0-0.4); Eosinophils Percent Auto 1.4 % (0-4); Hematocrit 46.6 % (42.0-52.0); Hemoglobin 15.8 g/dl (14.0-18.0); Imm Gran Abs Auto 0.06 X10*3/uL (0.00-0.03); Imm Gran Pct Auto 0.4 % (0.0-0.4); Lymphocytes Absolute Auto 3.9 X10*3/uL (1.2-4.9); Lymphocytes Percent Auto 27.8 % (20-40); Mean Corpuscular HGB Conc 33.9 g/dl (31.0-36.0); Mean Corpuscular Hemoglobin 30.2 pg (27.0-33.0); Mean Corpuscular Volume 88.9 fL (80.0-98.0); Mean Platelet Volume 11.9 fL (9.4-12.4); Monocytes Absolute Auto 0.9 X10*3/uL (0.1-1.2); Monocytes Percent Auto 6.8 % (2-11); Neutrophils Absolute Auto 8.7 x10*3/uL (2.0-8.3); Neutrophils Percent Auto 62.9 % (45-73); Platelet Count 199 X10*3/uL (160-400); Red Blood Count 5.24 X10*6/uL (4.60-5.80); Red Cell Distribution Width 13.9 % (11.0-16.0); White Blood Count 13.9 X10*3/uL (4.8-10.8)
[2023-10-07 11:04] LABS: Alanine Aminotransferase 28 U/L (0-40); Albumin Level 4.4 g/dL (3.5-5.0); Alkaline Phosphatase 74 U/L (39-117); Anion Gap 10 (12-20); Aspartate Amino Transferase 26 U/L (5-37); Bilirubin Total 0.3 mg/dL (0.0-1.0); Blood Urea Nitrogen 15 mg/dL (9-16); Calcium 9.5 mg/dL (8.4-10.2); Carbon Dioxide 28 mmol/L (22-29); Chloride 106 mmol/L (96-108); Cholesterol 122 mg/dL (<200); Estimated Glomerular Filt Rate > 60; Glucose Fasting 127 mg/dL (60-99); HDL Cholesterol 35 mg/dL (>40); LDL Cholesterol Calculated 65 mg/dL (<100); Potassium 4.2 mmol/L (3.3-5.1); Sodium 140 mmol/L (135-145); Triglycerides 110 mg/dL (<150)
== END 2023-10-07 08:20 | disposition home or self-care (01) ==
LOC: HO.HMGCLDS 08:19
PROVIDERS: PCP Internal Medicine; Visit Provider Internal Medicine
DX: I10 Essential (primary) hypertension (principal); E78.9 Disorder of lipoprotein metabolism, unspecified; R73.03 Prediabetes; F41.9 Anxiety disorder, unspecified; D72.829 Elevated white blood cell count, unspecified; F17.200 Nicotine dependence, unspecified, uncomplicated
CPT/HCPCS: 36415; 80053; 80061; 85025

== ENCOUNTER 2023-10-09 09:51 | Outpatient (AMB) | payer BC, SELFPAY ==
--- NOTE | 2023-10-09 09:55 | A.OFFPC_ITS ---
Vital Signs 10/09/23 09:56 Height 5 ft 10 in Weight 192 lb BMI 27.5 BP 122/80 Blood Pressure Location Lt brachial Position Sitting Pulse 73 Pulse Source Pulse Oximeter Pulse Oximetry (%) 98 Oxygen Delivery Method Room Air Intake Visit Reasons: PE Allergies No Known Allergies [No Known Allergies*] Allergy (Verified 10/09/23 09:56) Medication List - Last Reconciled 10/09/23 by Micah Alvarez MD atenolol 25 mg PO DAILY 90 days escitalopram oxalate (Lexapro) 10 mg PO DAILY rosuvastatin 40 mg PO DAILY 90 days Tobacco use date assessed: 10/09/23 Dental Screening Dental Screen Date: 10/09/23 HPI PE HPI Details Patient is a 48-year-old gentleman came in today for physical exam Continued to smoke about 5 cigarettes daily, patient is working on it His blood pressure is controlled patient is on atenolol 25 mg Anxiety is stable with Lexapro 10 mg Patient is also on rosuvastatin 40 mg for lipid control He is prediabetic , fasting sugar 127, labs done this month Continued to leukocytosis, has been evaluated by Hematology already, and no cause was found Due for colonoscopy: Patient had Cologuard test done which was negative, he will think about colonoscopy for next year Follow-up 4 months [facility] Surgical History History of tooth extraction Family History Maternal Grandfather Prostate CA Maternal Grandmother Dementia Alzheimer disease Depression Paternal Grandmother Dementia Alzheimer disease Sister Lupus Social History Household Members: Friend(s) Housing: House Alcohol intake: current Alcohol intake frequency: holidays/special occasions only Patient Tobacco Use Status: Current everyday Tobacco user Tobacco use type: Cigarette Cigarette Packs Per Day: 0.5 Years Smoked: 23 e-Cigarette/Vaping Use: Never Used service: No Current occupational status: employed Cognitive needs: No Hearing needs: No Vision needs: No Questionnaire Thrive Questionnaire Date Thrive assessed: 05/29/23 VINCENT-7 AMB Questionnaire VINCENT-7 Date VINCENT - 7 assessed: 05/29/23 Source: Developed by Drs. Eduardo Cartwright, Swetha Tapia, Jackson Thrasher and colleagues, with an educational paula from [employer]. Review of Systems Const Denies chills, Denies fever(s) and Denies headache(s) Eyes Denies blurry vision ENT Denies headache(s), Denies nasal discharge, Denies nasal obstruction, Denies odynophagia and Denies sinus pain Card Denies chest pain at rest and Denies chest pain with activity Resp Denies cough and Denies hemoptysis GI Denies diarrhea, Denies odynophagia, Denies vomiting and Denies hematemesis Reports as per HPI Musc Denies abnormal gait Skin/Breast Reports as per HPI Neuro Denies Neuro-related abnormal movements, Denies Abnormal speech present, Denies abnormal gait, Denies headache(s) and Denies Sensory deficit (Neuro) Psych Denies mood swings and Denies paranoia Endo Reports as per HPI Simon/Lymph Reports as per HPI Aller/Immun Reports as per HPI Physical exam (Primary Care) Vital Signs: Last Vital Signs Pulse 73 10/09/23 09:56 BP 122/80 10/09/23 09:56 Pulse Ox 98 10/09/23 09:56 Oxygen Delivery Method Room Air 10/09/23 09:56 BMI result Body Mass Index 27.5 Tobacco/Smoking Status: Tobacco use Status Tobacco use date assessed 10/09/23 10/09/23 09:59 Patient Tobacco Use Status Current everyday Tobacco 10/09/23 09:56 Tobacco use type Cigarette 10/09/23 09:56 e-Cigarette/Vaping Use Never Used 10/09/23 09:56 Thrive Assessment: Date of Thrive Assessment Date Thrive assessed 05/29/23 10/09/23 09:56 Const General: cooperative, comfortable and no acute distress Orientation/consciousness: patient oriented x3 HENMT Head: Yes normocephalic and Yes atraumatic Eyes General: appearance normal, both eyes and all related structures Pupils: Equal, round and reactive pupils present EOM: EOMs intact bilaterally Neck Neck: Yes supple and No lymphadenopathy Thyroid: Thyroid normal Lymphatic: no lymphadenopathy noted Resp Effort & Inspection: normal respiratory effort and able to speak in complete sentences Auscultation: clear to auscultation bilaterally Cardio Heart sounds: S1 normal heart sound present and S2 normal heart sound present GI Palpation (GI): Soft to palpation and nontender Auscultation: normal bowel sounds General: Yes no CVA tenderness Back/Spine/Pelvis Back: no CVA tenderness Skin General skin exam: elasticity normal and turgor normal Neuro General: patient oriented x3 and gait normal Cranial nerves: Yes Equal, round and reactive pupils present Speech: No Abnormal speech present Sensory Exam: No Sensory deficit (Neuro) Coordination: tandem gait normal and Romberg test negative Extrem General: Yes normal exam except as noted and No edema Assessment and Plan Assessment & Plan (1) Encounter for general adult medical examination with abnormal findings: Code(s): Z00.01 - Encounter for general adult medical examination with abnormal findings (2) Hypertension: Code(s): I10 - Essential (primary) hypertension Qualifiers: Hypertension type: primary hypertension Qualified Code(s): I10 - Essential (primary) hypertension (3) Lipid disorder: Code(s): E78.9 - Disorder of lipoprotein metabolism, unspecified (4) Pre-diabetes: Code(s): R73.03 - Prediabetes (5) Anxiety: Code(s): F41.9 - Anxiety disorder, unspecified (6) Leukocytosis: Code(s): D72.829 - Elevated white blood cell count, unspecified Qualifiers: Leukocytosis type: unspecified Qualified Code(s): D72.829 - Elevated white blood cell count, unspecified (7) Tobacco use disorder: Code(s): F17.200 - Nicotine dependence, unspecified, uncomplicated Plan Patient is a 48-year-old gentleman came in today for physical exam Continued to smoke about 5 cigarettes daily, patient is working on it His blood pressure is controlled patient is on atenolol 25 mg Anxiety is stable with Lexapro 10 mg Patient is also on rosuvastatin 40 mg for lipid control He is prediabetic , fasting sugar 127, labs done this month Continued to leukocytosis, has been evaluated by Hematology already, and no cause was found Due for colonoscopy: Patient had Cologuard test done which was negative, he will think about colonoscopy for next year Follow-up 4 months Orders: Orders Lipid Panel 3 Months D72.829 - Elevated white blood cell count, unspecified, E78.9 - Disorder of lipoprotein metabolism, unspecified, F41.9 - Anxiety disorder, unspecified, I10 - Essential (primary) hypertension, R73.03 - Prediabetes Complete Blood Count Auto Diff 3 Months D72.829 - Elevated white blood cell count, unspecified, E78.9 - Disorder of lipoprotein metabolism, unspecified, F41.9 - Anxiety disorder, unspecified, I10 - Essential (primary) hypertension, R73.03 - Prediabetes Comprehensive [place]. Panel Fast 3 Months D72.829 - Elevated white blood cell count, unspecified, E78.9 - Disorder of lipoprotein metabolism, unspecified, F41.9 - Anxiety disorder, unspecified, I10 - Essential (primary) hypertension, R73.03 - Prediabetes Hemoglobin A1c 3 Months D72.829 - Elevated white blood cell count, unspecified, E78.9 - Disorder of lipoprotein metabolism, unspecified, F41.9 - Anxiety disorder, unspecified, I10 - Essential (primary) hypertension, R73.03 - Prediabetes Coding Level of Care Code Est Pt Level 3 (00222) Est Pt Prev Care 40-64y(70868) Diagnoses Encounter for general adult medical examination with abnormal findings Z00.01 Primary hypertension I10 Hypertension type: primary hypertension Lipid disorder E78.9 Pre-diabetes R73.03 Anxiety F41.9 Leukocytosis, unspecified type D72.829 Leukocytosis type: unspecified Tobacco use disorder F17.200
[2023-10-09 09:56] VITALS: BP 122/80; PULSE 73; O2SAT 98; BMI 27.5
== END 2023-10-09 10:18 | disposition home or self-care (01) ==
PROVIDERS: PCP Internal Medicine; Visit Provider Internal Medicine
DX: Z00.00 Encounter for general adult medical examination without abnormal findings (principal); I10 Essential (primary) hypertension; E78.9 Disorder of lipoprotein metabolism, unspecified; R73.03 Prediabetes; F41.9 Anxiety disorder, unspecified; D72.829 Elevated white blood cell count, unspecified; F17.210 Nicotine dependence, cigarettes, uncomplicated
CPT/HCPCS: 99396

== ENCOUNTER 2024-02-04 09:30 | Outpatient (REF) | payer BC, SELFPAY ==
[2024-02-04 12:58] LABS: MANUAL DIFF FLAG NO
[2024-02-04 13:03] LABS: Basophils Absolute Auto 0.1 X10*3/uL (0.0-0.2); Basophils Percent Auto 0.7 % (0-2); Eosinophils Absolute Auto 0.2 X10*3/uL (0.0-0.4); Eosinophils Percent Auto 1.1 % (0-4); Hematocrit 48.7 % (42.0-52.0); Hemoglobin 16.4 g/dl (14.0-18.0); Imm Gran Pct Auto 0.6 % (0.0-0.4); Lymphocytes Absolute Auto 3.8 X10*3/uL (1.2-4.9); Lymphocytes Percent Auto 21.6 % (20-40); Mean Corpuscular HGB Conc 33.7 g/dl (31.0-36.0); Mean Corpuscular Hemoglobin 29.7 pg (27.0-33.0); Mean Corpuscular Volume 88.2 fL (80.0-98.0); Mean Platelet Volume 11.7 fL (9.4-12.4); Monocytes Percent Auto 5.9 % (2-11); Neutrophils Absolute Auto 12.2 x10*3/uL (2.0-8.3); Neutrophils Percent Auto 70.1 % (45-73); Platelet Count 220 X10*3/uL (160-400); Red Blood Count 5.52 X10*6/uL (4.60-5.80); Red Cell Distribution Width 14.3 % (11.0-16.0); White Blood Count 17.4 X10*3/uL (4.8-10.8)
[2024-02-04 13:17] LABS: Alanine Aminotransferase 22 U/L (0-40); Albumin Level 4.5 g/dL (3.5-5.0); Alkaline Phosphatase 74 U/L (39-117); Anion Gap 11 (12-20); Aspartate Amino Transferase 24 U/L (5-37); Bilirubin Total 0.4 mg/dL (0.0-1.0); Blood Urea Nitrogen 12 mg/dL (9-16); Calcium 9.4 mg/dL (8.4-10.2); Carbon Dioxide 27 mmol/L (22-29); Chloride 106 mmol/L (96-108); Cholesterol 124 mg/dL (<200); Estimated Glomerular Filt Rate > 60; Glucose Fasting 105 mg/dL (60-99); HDL Cholesterol 37 mg/dL (>40); LDL Cholesterol Calculated 69 mg/dL (<100); Potassium 3.8 mmol/L (3.3-5.1); Sodium 140 mmol/L (135-145); Triglycerides 93 mg/dL (<150)
[2024-02-04 13:52] LABS: Estimated Average Glucose 105 mg/dL; Hemoglobin A1C 141.2652 umol/L; Hemoglobin A1c % 5.3 % (<6.0)
== END 2024-02-04 09:31 | disposition home or self-care (01) ==
LOC: HO.HMGCLDS 09:30
PROVIDERS: PCP Internal Medicine; Visit Provider Internal Medicine
DX: F41.9 Anxiety disorder, unspecified (principal); I10 Essential (primary) hypertension; E78.9 Disorder of lipoprotein metabolism, unspecified; R73.03 Prediabetes; D72.829 Elevated white blood cell count, unspecified
CPT/HCPCS: 36415; 80053; 80061; 83036; 85025

== ENCOUNTER 2024-02-09 08:18 | Outpatient (AMB) | payer BC, SELFPAY ==
--- NOTE | 2024-02-09 08:24 | MHC.PC.OV ---
Vital Signs 02/09/24 08:25 Height 5 ft 10 in Weight 190 lb 6 oz BMI 27.3 BP 122/70 Blood Pressure Location Lt brachial Position Sitting Pulse 84 Pulse Source Pulse Oximeter Pulse Oximetry (%) 98 Oxygen Delivery Method Room Air Intake Visit Reasons: Follow Up Allergies No Known Allergies [No Known Allergies*] Allergy (Verified 02/09/24 08:27) Medication List - Last Reconciled 02/09/24 by Micah Alvarez MD atenolol 25 mg PO DAILY 90 days escitalopram oxalate (Lexapro) 10 mg PO DAILY rosuvastatin 40 mg PO DAILY 90 days Tobacco use date assessed: 02/09/24 Dental Screening Dental Screen Date: 02/09/24 Did you have a dental visit in the last 12 months?: Yes Did you have a dental problem in the last 6 months where you did not have access to dental care?: No Was dental information given to patient?: Patient has dentist HPI Follow Up HPI Details Patient is a 48-year-old gentleman came in today for his regular follow-up appointment Patient is doing well taking all his medications Had labs done recently Continued to have elevated white count which has been evaluated by Hematology Count is stable Continued to smoke about 5 cigarettes daily, patient is working on it His blood pressure is controlled patient is on atenolol 25 mg , tolerating medication no side effects Anxiety is stable with Lexapro 10 mg , have presentation today, patient says that he is a little bit nervous but feels he will be able to do it Patient is also on rosuvastatin 40 mg for lipid control He is prediabetic , fasting sugar has improved from before, hemoglobin A1c in 5 range Follow-up 4 months Physical exam in September [facility] Surgical History History of tooth extraction Family History Maternal Grandfather Prostate CA Maternal Grandmother Dementia Alzheimer disease Depression Paternal Grandmother Dementia Alzheimer disease Sister Lupus Social History Household Members: Friend(s) Housing: House Alcohol intake: current Alcohol intake frequency: holidays/special occasions only Patient Tobacco Use Status: Current everyday Tobacco user Tobacco use type: Cigarette Cigarette Packs Per Day: 0.5 Years Smoked: 23 e-Cigarette/Vaping Use: Never Used service: No Current occupational status: employed Cognitive needs: No Hearing needs: No Vision needs: No Questionnaire PHQ-9 Over the last 2 weeks, how often have you been bothered by any of the following problems? 1. Little interest or pleasure in doing things: not at all 2. Feeling down, depressed, or hopeless: not at all 3. Trouble falling or staying asleep, or sleeping too much: not at all 4. Feeling tired or having little energy: not at all 5. Poor appetite or overeating: not at all 6. Feeling bad about yourself - or that you are a failure or have let yourself or your family down: not at all 7. Trouble concentrating on things, such as reading the newspaper or watching television: not at all 8. Moving or speaking so slowly that other people could have noticed. Or the opposite - being so fidgety or restless that you have been moving around a lot more than usual: not at all 9. Thoughts that you would be better off or of hurting yourself in some way: not at all Total score: 0 Depression Screening Interpretation: Negative Depression Screening Done: Yes 47507 - PHQ-9 Billing: Yes Source: Developed by Drs. Eduardo Cartwright, Swetha Tapia, Jackson Thrasher and colleagues, with an educational paula from [employer]. Thrive Questionnaire Date Thrive assessed: 02/09/24 I am a: Patient What is your living situation today?: I have a steady place to live Within the past 12 months, did the food you bought not last and you didn't have the money to get more?: Never true Within the past 12 months, did you worry whether your food would run out before you got money to buy more?: Never true Do you have trouble paying for medicines?: No Do you have trouble getting transportation to medical appointments?: No Do you have trouble paying your heating and electricity bill?: No Do you have trouble taking care of your child, family member or friend?: No Do you have trouble with day-to-day activities such as bathing, preparing meals, shopping, managing finances, etc.?: No Are you currently unemployed and looking for a job?: No Are you interested in more education?: No Please select the resources that you would like help with: None Currently or been in a relationship where the following occur: No concerns reported THRIVE Score: 0 AUDIT C Alcohol Use Questionnaire (AUDIT-C) 1. How often do you have a drink containing alcohol?: Monthly or less 2. How many drinks containing alcohol do you have on a typical day when you are drinking?: 1 or 2 3. How often do you have six or more drinks on one occasion?: Never Total Score: 1 Score Reviewed/Action Taken: Yes VINCENT-7 AMB Questionnaire VINCENT-7 Date VINCENT - 7 assessed: 02/09/24 Feeling nervous, anxious, or on edge: 1 = Several days Not being able to stop or control worryin = Not at all Worrying too much about different things: 0 = Not at all Trouble relaxin = Not at all Being so restless that it is hard to sit still: 0 = Not at all Becoming easily annoyed or irritable: 0 = Not at all Feeling afraid as if something awful might happen: 0 = Not at all Total VINCENT-7 score (0-4 normal; 5-9 mild; 10-14 moderate; 15-21 severe): 1 Source: Developed by Drs. Eduardo Cartwright, Swetha Tapia, Jackson Thrasher and colleagues, with an educational paula from [employer]. VINCENT-7 Assessment Billing VINCENT-7 Assessment Tool: VINCENT-7 Assessment 77799 Review of Systems Const Denies chills and Denies fever(s) ENT Denies epistaxis and Denies nasal discharge Card Denies chest pain Resp Denies chest congestion, Denies cough and Denies hemoptysis GI Denies diarrhea and Denies nausea Skin/Breast Denies rash Neuro Reports no additional complaints Psych Reports no additional complaints Endo Reports no additional complaints Physical exam (Primary Care) Vital Signs: Last Vital Signs Pulse 84 02/09/24 08:25 BP 122/70 02/09/24 08:25 Pulse Ox 98 02/09/24 08:25 Oxygen Delivery Method Room Air 02/09/24 08:25 BMI result Body Mass Index 27.3 Tobacco/Smoking Status: Tobacco use Status Tobacco use date assessed 02/09/24 02/09/24 08:28 Patient Tobacco Use Status Current everyday Tobacco 02/09/24 08:28 Tobacco use type Cigarette 02/09/24 08:28 e-Cigarette/Vaping Use Never Used 02/09/24 08:28 PHQ-9: PHQ-9 Score PHQ-9: Total score 0 02/09/24 08:28 Depression Screening Interpretation: Negative Thrive Assessment: Date of Thrive Assessment Date Thrive assessed 02/09/24 02/09/24 08:28 Currently or been in a relationship where the following occur: No concerns reported Const General: cooperative, comfortable and no acute distress Orientation/consciousness: patient oriented x3 HENMT Head: Yes normocephalic Eyes General: appearance normal, both eyes and all related structures Neck Neck: Yes supple Resp Effort & Inspection: normal respiratory effort, no cough and no stridor Cardio Rhythm: regular rhythm Heart sounds: S1 normal heart sound present and S2 normal heart sound present Skin General skin exam: turgor normal Neuro General: patient oriented x3, tone normal and moves all extremities Extrem Right lower extremity: no edema Left lower extremity: no edema Coding Level of Care Code Est Pt Level 4 (11494) Diagnoses Primary hypertension I10 Hypertension type: primary hypertension Anxiety F41.9 Leukocytosis, unspecified type D72.829 Leukocytosis type: unspecified Pre-diabetes R73.03 Lipid disorder E78.9 Tobacco use disorder F17.200 Additional Codes VINCENT-7 Assessment Billing - VINCENT-7 Assessment Tool: VINCENT-7 Assessment 87131 ([id number]) Assessment & Plan Assessment & Plan (1) Hypertension: Code(s): I10 - Essential (primary) hypertension Category: Medical Qualifiers: Hypertension type: primary hypertension Qualified Code(s): I10 - Essential (primary) hypertension (2) Anxiety: Code(s): F41.9 - Anxiety disorder, unspecified Category: Medical (3) Leukocytosis: Code(s): D72.829 - Elevated white blood cell count, unspecified Category: Medical Qualifiers: Leukocytosis type: unspecified Qualified Code(s): D72.829 - Elevated white blood cell count, unspecified (4) Pre-diabetes: Code(s): R73.03 - Prediabetes Category: Medical (5) Lipid disorder: Code(s): E78.9 - Disorder of lipoprotein metabolism, unspecified Category: Medical (6) Tobacco use disorder: Code(s): F17.200 - Nicotine dependence, unspecified, uncomplicated Category: Medical Plan Patient is a 48-year-old gentleman came in today for his regular follow-up appointment Patient is doing well taking all his medications Had labs done recently Continued to have elevated white count which has been evaluated by Hematology Count is stable Continued to smoke about 5 cigarettes daily, patient is working on it His blood pressure is controlled patient is on atenolol 25 mg , tolerating medication no side effects Anxiety is stable with Lexapro 10 mg , have presentation today, patient says that he is a little bit nervous but feels he will be able to do it Patient is also on rosuvastatin 40 mg for lipid control He is prediabetic , fasting sugar has improved from before, hemoglobin A1c in 5 range Follow-up 4 months Physical exam in September Orders: Orders Hemoglobin A1c 3 Months D72.829 - Elevated white blood cell count, unspecified, E78.9 - Disorder of lipoprotein metabolism, unspecified, F41.9 - Anxiety disorder, unspecified, I10 - Essential (primary) hypertension, R73.03 - Prediabetes Complete Blood Count Auto Diff 3 Months D72.829 - Elevated white blood cell count, unspecified, E78.9 - Disorder of lipoprotein metabolism, unspecified, F41.9 - Anxiety disorder, unspecified, I10 - Essential (primary) hypertension, R73.03 - Prediabetes Comprehensive Met. Panel 3 Months D72.829 - Elevated white blood cell count, unspecified, E78.9 - Disorder of lipoprotein metabolism, unspecified, F41.9 - Anxiety disorder, unspecified, I10 - Essential (primary) hypertension, R73.03 - Prediabetes LDL Cholesterol Direct 3 Months D72.829 - Elevated white blood cell count, unspecified, E78.9 - Disorder of lipoprotein metabolism, unspecified, F41.9 - Anxiety disorder, unspecified, I10 - Essential (primary) hypertension, R73.03 - Prediabetes Medications: New escitalopram oxalate (Lexapro) 10 mg PO DAILY 90 tabs 0RF Refilled rosuvastatin 40 mg PO DAILY 90 days 90 tabs 1RF
[2024-02-09 08:25] VITALS: BP 122/70; PULSE 84; O2SAT 98; BMI 27.3
== END 2024-02-09 08:47 | disposition home or self-care (01) ==
PROVIDERS: PCP Internal Medicine; Visit Provider Internal Medicine
DX: I10 Essential (primary) hypertension (principal); F41.9 Anxiety disorder, unspecified; D72.829 Elevated white blood cell count, unspecified; R73.03 Prediabetes; E78.9 Disorder of lipoprotein metabolism, unspecified; F17.200 Nicotine dependence, unspecified, uncomplicated

== ENCOUNTER → 2024-02-09 08:18 | Outpatient (BNVA) | payer BC, SELFPAY | PROVIDERS: PCP Internal Medicine; Visit Provider Internal Medicine | DX: I10 Essential (primary) hypertension (principal); F41.9 Anxiety disorder, unspecified; D72.829 Elevated white blood cell count, unspecified; R73.03 Prediabetes; E78.9 Disorder of lipoprotein metabolism, unspecified; F17.210 Nicotine dependence, cigarettes, uncomplicated | CPT/HCPCS: 96127 ==

== ENCOUNTER 2024-06-13 09:37 | Outpatient (REF) | payer BC, SELFPAY ==
[2024-06-13 10:18] LABS: MANUAL DIFF FLAG NO
[2024-06-13 10:25] LABS: Basophils Absolute Auto 0.1 X10*3/uL (0.0-0.2); Eosinophils Absolute Auto 0.1 X10*3/uL (0.0-0.4); Eosinophils Percent Auto 0.7 % (0-4); Hematocrit 48.4 % (42.0-52.0); Hemoglobin 16.4 g/dl (14.0-18.0); Imm Gran Abs Auto 0.07 X10*3/uL (0.00-0.03); Imm Gran Pct Auto 0.6 % (0.0-0.4); Lymphocytes Absolute Auto 3.2 X10*3/uL (1.2-4.9); Mean Corpuscular HGB Conc 33.9 g/dl (31.0-36.0); Mean Corpuscular Hemoglobin 29.9 pg (27.0-33.0); Mean Corpuscular Volume 88.2 fL (80.0-98.0); Mean Platelet Volume 11.1 fL (9.4-12.4); Monocytes Absolute Auto 1.1 X10*3/uL (0.1-1.2); Monocytes Percent Auto 8.9 % (2-11); Neutrophils Absolute Auto 7.7 x10*3/uL (2.0-8.3); Neutrophils Percent Auto 62.8 % (45-73); Platelet Count 196 X10*3/uL (160-400); Red Blood Count 5.49 X10*6/uL (4.60-5.80); Red Cell Distribution Width 13.7 % (11.0-16.0); White Blood Count 12.2 X10*3/uL (4.8-10.8)
[2024-06-13 10:40] LABS: Estimated Average Glucose 103 mg/dL; Hemoglobin A1C 139.4361 umol/L; Hemoglobin A1c % 5.2 % (<6.0); Total Hemoglobin (HGBA1C) 4125.3216 umol/L
[2024-06-13 11:02] LABS: Alanine Aminotransferase 57 U/L (0-40); Albumin Level 4.4 g/dL (3.5-5.0); Alkaline Phosphatase 69 U/L (39-117); Anion Gap 13 (12-20); Aspartate Amino Transferase 40 U/L (5-37); Bilirubin Total 0.3 mg/dL (0.0-1.0); Blood Urea Nitrogen 25 mg/dL (9-16); Carbon Dioxide 22 mmol/L (22-29); Chloride 107 mmol/L (96-108); Estimated Glomerular Filt Rate > 60; Glucose Random 113 mg/dL (60-115); Potassium 4.1 mmol/L (3.3-5.1); Sodium 138 mmol/L (135-145); Total Protein 7.3 g/dL (6.5-8.0)
[2024-06-14 15:49] LABS: LDL Cholesterol Direct 77 mg/dL (<100)
== END 2024-06-13 09:38 | disposition home or self-care (01) ==
LOC: HO.HMGCLDS 09:37
PROVIDERS: PCP Internal Medicine; Visit Provider Internal Medicine
DX: F41.9 Anxiety disorder, unspecified (principal); I10 Essential (primary) hypertension; E78.9 Disorder of lipoprotein metabolism, unspecified; R73.03 Prediabetes; D72.829 Elevated white blood cell count, unspecified
CPT/HCPCS: 36415; 80053; 83036; 83721; 85025

== ENCOUNTER 2024-06-14 09:47 | Outpatient (AMB) | payer BC, SELFPAY ==
[2024-06-14 09:57] VITALS: BP 130/78; PULSE 76; RESP 17; TEMP 37.1; O2SAT 98; BMI 27.9
--- NOTE | 2024-06-14 09:57 | A.OFFPC_ITS ---
Vital Signs 06/14/24 09:57 Height 5 ft 10 in Weight 194 lb 8 oz BMI 27.9 BP 130/78 Blood Pressure Location Lt brachial Position Sitting Respiration 17 Pulse 76 Pulse Source Pulse Oximeter Temp 98.7 F Temp Source Oral Pulse Oximetry (%) 98 Oxygen Delivery Method Room Air Intake Visit Reasons: 4 months f/up Allergies No Known Allergies [No Known Allergies*] Allergy (Verified 06/14/24 09:58) Medication List - Last Reconciled 06/14/24 by Micah Alvarez MD atenolol 25 mg PO DAILY 90 days escitalopram oxalate (Lexapro) 10 mg PO DAILY rosuvastatin 40 mg PO DAILY 90 days Tobacco use date assessed: 06/14/24 Dental Screening Dental Screen Date: 06/14/24 Did you have a dental visit in the last 12 months?: Yes Did you have a dental problem in the last 6 months where you did not have access to dental care?: No Was dental information given to patient?: Patient has dentist HPI 4 months f/up HPI Details History The patient is a 49-year-old male presenting with nasal congestion. - Experienced COVID-19 infection in mid- April, contracted from a roommate - Reports complete recovery from the zeeshan екатерина infection, with residual symptoms including persistent nasal congestion and morning mucus expectoration. - Recent labs show elevated liver enzyme s and a chronically elevated white blood cell count, possibly post-infectious. - Takes atenolol, Lexapro, and rosuvasta tin for managing anxiety, depression, and hyperlipidemia, none of which have yielded adverse effects. Problem List - COVID-19 Infection - Nasal Congestion - Elevated Liver Enzymes - Chronic Elevated White Blood Cell Coun t - Anxiety - Depression - Hyperlipidemia Patient Instructions - Use saline nasal spray at night to hel p relieve nasal congestion. - Schedule fasting labs prior to the nex t appointment on October 10. - Continue taking current medications as prescribed. - Monitor symptoms and report any worsen ing or new symptoms. Review of Systems - General: No fever no chills - Neurological: No headaches no dizziness - Ear nose throat: No sore throat no hearing difficulty no ear pain - Cardiovascular: No syncope, no chest pain, no palpitations - Gastrointestinal: No nausea vomiting or diarrhea - Endocrine: No polyuria polydipsia no heat intolerance - Genitourinary: No dysuria , no blood in urine Physical Exam General: No acute distress HEENT: No acute findings, nasal congestion noted Neck: Supple Respiratory system: Able to talk in full sentences, no audible wheeze cardiovascular: S1-S2 regular in rate and rhythm Gastrointestinal: No pain Extremities: No new findings SECURITY SERVICES MANAGER: Alert awake oriented x3 motor sensory intact Skin: Normal turgor PFSH Surgical History History of tooth extraction Family History Maternal Grandfather Prostate CA Maternal Grandmother Dementia Alzheimer disease Depression Paternal Grandmother Dementia Alzheimer disease Sister Lupus Social History Household Members: Friend(s) Housing: House Alcohol intake: current Alcohol intake frequency: holidays/special occasions only Patient Tobacco Use Status: Current everyday Tobacco user Tobacco use type: Cigarette Cigarette Packs Per Day: 0.5 Years Smoked: 23 Packs Per Year: 12 e-Cigarette/Vaping Use: Never Used service: No Current occupational status: employed Cognitive needs: No Hearing needs: No Vision needs: No Questionnaire PHQ-9 Over the last 2 weeks, how often have you been bothered by any of the following problems? 1. Little interest or pleasure in doing things: not at all 2. Feeling down, depressed, or hopeless: not at all 3. Trouble falling or staying asleep, or sleeping too much: not at all 4. Feeling tired or having little energy: not at all 5. Poor appetite or overeating: not at all 6. Feeling bad about yourself - or that you are a failure or have let yourself or your family down: not at all 7. Trouble concentrating on things, such as reading the newspaper or watching television: not at all 8. Moving or speaking so slowly that other people could have noticed. Or the opposite - being so fidgety or restless that you have been moving around a lot more than usual: not at all 9. Thoughts that you would be better off or of hurting yourself in some way: not at all Total score: 0 Depression Screening Interpretation: Negative Depression Screening Done: Yes 71352 - PHQ-9 Billing: Yes Source: Developed by Drs. Eduardo Cartwright, Jackson Medina and colleagues, with an educational paula from [employer]. Thrive Questionnaire Date Thrive assessed: 06/14/24 I am a: Patient What is your living situation today?: I have a steady place to live Within the past 12 months, did the food you bought not last and you didn't have the money to get more?: Never true Within the past 12 months, did you worry whether your food would run out before you got money to buy more?: Never true Do you have trouble paying for medicines?: No Do you have trouble getting transportation to medical appointments?: No Do you have trouble paying your heating and electricity bill?: No Do you have trouble taking care of your child, family member or friend?: No Do you have trouble with day-to-day activities such as bathing, preparing meals, shopping, managing finances, etc.?: No Are you currently unemployed and looking for a job?: No Are you interested in more education?: No Please select the resources that you would like help with: None Currently or been in a relationship where the following occur: No concerns reported THRIVE Score: 0 AUDIT C Alcohol Use Questionnaire (AUDIT-C) 1. How often do you have a drink containing alcohol?: Monthly or less 2. How many drinks containing alcohol do you have on a typical day when you are drinking?: 1 or 2 3. How often do you have six or more drinks on one occasion?: Never Total Score: 1 Score Reviewed/Action Taken: Yes VINCENT-7 AMB Questionnaire VINCENT-7 Date VINCENT - 7 assessed: 06/14/24 Feeling nervous, anxious, or on edge: 1 = Several days Not being able to stop or control worryin = Not at all Worrying too much about different things: 0 = Not at all Trouble relaxin = Not at all Being so restless that it is hard to sit still: 0 = Not at all Becoming easily annoyed or irritable: 0 = Not at all Feeling afraid as if something awful might happen: 0 = Not at all Total VINCENT-7 score (0-4 normal; 5-9 mild; 10-14 moderate; 15-21 severe): 1 Source: Developed by Swetha Herr Kurt Kroenke and colleagues, with an educational paula from [employer]. VINCENT-7 Assessment Billing VINCENT-7 Assessment Tool: VINCENT-7 Assessment 52905 Physical exam (Primary Care) Vital Signs: Last Vital Signs Temp 98.7 F 06/14/24 09:57 Pulse 76 06/14/24 09:57 Resp 17 06/14/24 09:57 BP 130/78 06/14/24 09:57 Pulse Ox 98 06/14/24 09:57 Oxygen Delivery Method Room Air 06/14/24 09:57 BMI result Body Mass Index 27.9 Tobacco/Smoking Status: Tobacco use Status Tobacco use date assessed 06/14/24 06/14/24 09:58 Patient Tobacco Use Status Current everyday Tobacco 06/14/24 09:58 Tobacco use type Cigarette 06/14/24 09:58 e-Cigarette/Vaping Use Never Used 06/14/24 09:58 PHQ-9: PHQ-9 Score PHQ-9: Total score 0 06/14/24 14:40 Depression Screening Interpretation: Negative Thrive Assessment: Date of Thrive Assessment Date Thrive assessed 06/14/24 06/14/24 09:58 Currently or been in a relationship where the following occur: No concerns reported Coding Level of Care Code Est Pt Level 4 (02640) Diagnoses Primary hypertension I10 Hypertension type: primary hypertension Anxiety F41.9 Lipid disorder E78.9 Pre-diabetes R73.03 Leukocytosis, unspecified type D72.829 Leukocytosis type: unspecified Tobacco use disorder F17.200 Additional Codes VINCENT-7 Assessment Billing - VINCENT-7 Assessment Tool: VINCENT-7 Assessment 38916 ([id number]) PHQ-9 - 51224 - PHQ-9 Billing: Yes ([id number]) Assessment & Plan Assessment & Plan (1) Hypertension: Code(s): I10 - Essential (primary) hypertension Category: Medical Qualifiers: Hypertension type: primary hypertension Qualified Code(s): I10 - Essential (primary) hypertension (2) Anxiety: Code(s): F41.9 - Anxiety disorder, unspecified Category: Medical (3) Lipid disorder: Code(s): E78.9 - Disorder of lipoprotein metabolism, unspecified Category: Medical (4) Pre-diabetes: Code(s): R73.03 - Prediabetes Category: Medical (5) Leukocytosis: Code(s): D72.829 - Elevated white blood cell count, unspecified Category: Medical Qualifiers: Leukocytosis type: unspecified Qualified Code(s): D72.829 - Elevated white blood cell count, unspecified (6) Tobacco use disorder: Code(s): F17.200 - Nicotine dependence, unspecified, uncomplicated Category: Medical Plan - The patient is a 74-year-old female presenting for a three-month follow-up appointment. - Family dynamics have caused significant psychological stress owing to political disagreements, leading to avoidance of gatherings and subsequent stress symptoms. - Renal stones led to stent placement, pending further evaluation and possible removal. - Hemoglobin level was noted to be slightly low previously, related to ongoing renal issues. - COVID-19 was contracted recently with mild symptoms, primarily cough and altered smell perception. - The patient remains an active smoker and is advised on associated health risks. - Vitamin D insufficiency was identified; supplementation has now been prescribed. - Current medications were reviewed, confirming the ongoing need and renewal of fluoxetine, lorazepam, and atorvastatin. - Expectation for consultation with Dr. Marmolejo, urologist, for further renal evaluation was discussed. Problem List - Family tension related to family politics - Renal stones with stent placement - History of COVID-19 infection - Decreased hemoglobin levels (11.4) - Smoking - Stress-related symptoms (stomach ache) - ongoing anxiety and depression - Vitamin D Insufficiency Patient Instructions - Begin taking Vitamin D supplements as prescribed. - Cancel the June 17 physical exam appointment and reschedule for three months later. - Contact your urologist, Dr. Marmolejo, for further information regarding stent management and upcoming renal scan. - Continue prescribed medications: fluoxetine 20 mg, lorazepam 0.5 mg, and atorvastatin 40 mg. - Monitor stress levels, avoid known stress triggers where possible. - Refrain from smoking, consider cessation programs for improved health. - Schedule the next follow-up in three months as discussed. Orders: Orders Complete Blood Count Auto Diff 3 Months D72.829 - Elevated white blood cell count, unspecified, E78.9 - Disorder of lipoprotein metabolism, unspecified, F17.200 - Nicotine dependence, unspecified, uncomplicated, F41.9 - Anxiety disorder, unspecified, I10 - Essential (primary) hypertension, R73.03 - Prediabetes Comprehensive [place]. Panel Fast 3 Months D72.829 - Elevated white blood cell count, unspecified, E78.9 - Disorder of lipoprotein metabolism, unspecified, F17.200 - Nicotine dependence, unspecified, uncomplicated, F41.9 - Anxiety disorder, unspecified, I10 - Essential (primary) hypertension, R73.03 - Prediabetes Lipid Panel 3 Months D72.829 - Elevated white blood cell count, unspecified, E78.9 - Disorder of lipoprotein metabolism, unspecified, F17.200 - Nicotine dependence, unspecified, uncomplicated, F41.9 - Anxiety disorder, unspecified, I10 - Essential (primary) hypertension, R73.03 - Prediabetes Vitamin D 25-OH (D2 and D3) 3 Months D72.829 - Elevated white blood cell count, unspecified, E78.9 - Disorder of lipoprotein metabolism, unspecified, F17.200 - Nicotine dependence, unspecified, uncomplicated, F41.9 - Anxiety disorder, unspecified, I10 - Essential (primary) hypertension, R73.03 - Prediabetes Hemoglobin A1c 3 Months R73.03 - Prediabetes
== END 2024-06-14 10:16 | disposition home or self-care (01) ==
PROVIDERS: PCP Internal Medicine; Visit Provider Internal Medicine
DX: I10 Essential (primary) hypertension (principal); F41.9 Anxiety disorder, unspecified; E78.9 Disorder of lipoprotein metabolism, unspecified; R73.03 Prediabetes; D72.829 Elevated white blood cell count, unspecified; F17.200 Nicotine dependence, unspecified, uncomplicated

== ENCOUNTER → 2024-06-14 09:47 | Outpatient (BNVA) | payer BC, SELFPAY | PROVIDERS: PCP Internal Medicine; Visit Provider Internal Medicine | DX: I10 Essential (primary) hypertension (principal); F41.9 Anxiety disorder, unspecified; E78.9 Disorder of lipoprotein metabolism, unspecified; R73.03 Prediabetes; D72.829 Elevated white blood cell count, unspecified; F17.210 Nicotine dependence, cigarettes, uncomplicated; Z79.899 Other long term (current) drug therapy | CPT/HCPCS: 96127 ==

== ENCOUNTER 2024-10-10 08:02 | Outpatient (REF) | payer BC, SELFPAY ==
[2024-10-10 10:24] LABS: MANUAL DIFF FLAG NO
[2024-10-10 10:29] LABS: Basophils Absolute Auto 0.1 X10*3/uL (0.0-0.2); Eosinophils Absolute Auto 0.2 X10*3/uL (0.0-0.4); Eosinophils Percent Auto 1.5 % (0-4); Hematocrit 44.2 % (42.0-52.0); Hemoglobin 14.8 g/dl (14.0-18.0); Imm Gran Abs Auto 0.05 X10*3/uL (0.00-0.03); Imm Gran Pct Auto 0.4 % (0.0-0.4); Lymphocytes Absolute Auto 2.9 X10*3/uL (1.2-4.9); Lymphocytes Percent Auto 22.9 % (20-40); Mean Corpuscular HGB Conc 33.5 g/dl (31.0-36.0); Mean Corpuscular Hemoglobin 29.7 pg (27.0-33.0); Mean Corpuscular Volume 88.8 fL (80.0-98.0); Mean Platelet Volume 11.8 fL (9.4-12.4); Monocytes Absolute Auto 1.2 X10*3/uL (0.1-1.2); Monocytes Percent Auto 9.4 % (2-11); Neutrophils Absolute Auto 8.1 x10*3/uL (2.0-8.3); Neutrophils Percent Auto 64.8 % (45-73); Platelet Count 210 X10*3/uL (160-400); Red Blood Count 4.98 X10*6/uL (4.60-5.80); Red Cell Distribution Width 13.8 % (11.0-16.0); White Blood Count 12.5 X10*3/uL (4.8-10.8)
[2024-10-10 10:39] LABS: Estimated Average Glucose 103 mg/dL; Hemoglobin A1c % 5.2 % (<6.0)
[2024-10-10 10:44] LABS: Alanine Aminotransferase 67 U/L (0-40); Albumin Level 4.4 g/dL (3.5-5.0); Alkaline Phosphatase 75 U/L (39-117); Anion Gap 15 (12-20); Aspartate Amino Transferase 55 U/L (5-37); Bilirubin Total 0.4 mg/dL (0.0-1.0); Blood Urea Nitrogen 19 mg/dL (9-16); Calcium 9.3 mg/dL (8.4-10.2); Carbon Dioxide 25 mmol/L (22-29); Chloride 106 mmol/L (96-108); Cholesterol 112 mg/dL (<200); Estimated Glomerular Filt Rate 44; Glucose Fasting 105 mg/dL (60-99); HDL Cholesterol 46 mg/dL (>40); LDL Cholesterol Calculated 52 mg/dL (<100); Potassium 4.2 mmol/L (3.3-5.1); Sodium 142 mmol/L (135-145); Total Protein 6.9 g/dL (6.5-8.0); Triglycerides 73 mg/dL (<150)
[2024-10-14 14:28] LABS: Vitamin D 25-OH, D2 <4 ng/mL; Vitamin D 25-OH, D3 51 ng/mL; Vitamin D 25-OH, Total 51 ng/mL (30-100)
== END 2024-10-10 08:03 | disposition home or self-care (01) ==
LOC: HO.HMGCLDS 08:02
PROVIDERS: PCP Internal Medicine; Visit Provider Internal Medicine
DX: R73.03 Prediabetes (principal); F17.200 Nicotine dependence, unspecified, uncomplicated; E78.9 Disorder of lipoprotein metabolism, unspecified; F41.9 Anxiety disorder, unspecified; I10 Essential (primary) hypertension
CPT/HCPCS: 36415; 80053; 80061; 82306; 83036; 85025

== ENCOUNTER 2024-10-11 09:16 | Outpatient (AMB) | payer BC, SELFPAY ==
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
[2024-10-11 09:19] VITALS: BP 126/84; PULSE 77; TEMP 36.5; O2SAT 97; BMI 27.6
== END 2024-10-11 09:46 | disposition home or self-care (01) ==
LOC: HO.HMCC 09:16
PROVIDERS: PCP Internal Medicine; Visit Provider Internal Medicine
DX: Z00.00 Encounter for general adult medical examination without abnormal findings (principal); R74.8 Abnormal levels of other serum enzymes; R79.89 Other specified abnormal findings of blood chemistry; I10 Essential (primary) hypertension; F41.9 Anxiety disorder, unspecified; E78.9 Disorder of lipoprotein metabolism, unspecified; R73.03 Prediabetes; F17.200 Nicotine dependence, unspecified, uncomplicated

== ENCOUNTER → 2024-10-11 09:16 | Outpatient (BNVA) | payer BC, SELFPAY | PROVIDERS: PCP Internal Medicine; Visit Provider Internal Medicine | DX: Z13.89 Encounter for screening for other disorder (principal) ==

== ENCOUNTER 2024-12-07 08:23 | Outpatient (REF) | payer BC, SELFPAY ==
[2024-12-07 11:17] LABS: Alanine Aminotransferase 14 U/L (0-40); Albumin Level 4.4 g/dL (3.5-5.0); Alkaline Phosphatase 56 U/L (39-117); Anion Gap 14 (12-20); Aspartate Amino Transferase 24 U/L (5-37); Blood Urea Nitrogen 39 mg/dL (9-16); Calcium 8.8 mg/dL (8.4-10.2); Carbon Dioxide 22 mmol/L (22-29); Chloride 110 mmol/L (96-108); Estimated Glomerular Filt Rate 19; Potassium 4.0 mmol/L (3.3-5.1); Sodium 142 mmol/L (135-145); Total Protein 6.7 g/dL (6.5-8.0)
== END 2024-12-07 08:24 | disposition home or self-care (01) ==
LOC: HO.HMGCLDS 08:23
PROVIDERS: PCP Internal Medicine; Visit Provider Internal Medicine
DX: R74.8 Abnormal levels of other serum enzymes (principal); R79.89 Other specified abnormal findings of blood chemistry
CPT/HCPCS: 36415; 80053

== ENCOUNTER 2024-12-08 08:33 | Outpatient (AMB) | payer BC, SELFPAY ==
--- NOTE | 2024-12-08 10:31 | A.OFFPC_ITS ---
Intake Visit Reasons: lab review Allergies No Known Allergies (No Known Allergies*) Allergy (Verified 10/11/24 09:20) Medication List - Last Reconciled 12/08/24 by Micah Alvarez MD atenolol 25 mg PO DAILY 90 days escitalopram oxalate (Lexapro) 10 mg PO DAILY rosuvastatin 40 mg PO DAILY 90 days Tobacco use date assessed: 10/11/24 Dental Screening Dental Screen Date: 10/11/24 HPI lab review HPI Details Chief Complaint Recent worsening of kidney function. History of Present Illness The patient is a 49-year-old male presenting with worsening kidney function. Worsening kidney function: - The patient had previously normal kidn ey function noted in May. - In September, laboratory tests indicated an estimated glomerular filtration rate (eGFR) of 44 and a creatinine level of 1.6. - Recent laboratory results have shown f urther deterioration, with eGFR decreasing to 19 and creatinine increasing to 3.4. - The patient denies taking any chronic zxkd-zic-pwzedgy analgesics like ibuprofen or naproxen, although he did take ibuprofen episodically for back pain from working on his car. - He reports anxiety upon receiving a ca ll regarding the nephrology appointment for further evaluation, already scheduled for the of the . Medical History: - Slightly elevated liver enzymes. Medications: - Regular [employer] gummy vitamins. Social History: - The patient has been attentive to nutr itional intake, avoiding carbohydrates unless they are whole grains, and has eliminated salt and sugar from their diet. Diagnostic Results: - Labs: - May: Normal kidney functi on. - September: eGFR of 44, Creatinine of 1.6. - Recent: eGFR of 19, Creatinine of 3.4. - Liver enzymes are elevated but not spe cified. Problem List - Worsening Kidney Function - Elevated Liver Enzymes Patient Instructions - Discontinue all hutp-bzl-icnyizv suppl ements. - Avoid the use of ibuprofen, naproxen, Aleve, and Motrin. - Increase fluid intake. - Attend nephrology appointment as sched uled for further evaluation. Review of Systems - General: No fever no chills - Neurological: No headaches no dizziness - Ear nose throat: No sore throat no hearing difficulty no ear pain - Cardiovascular: No syncope, no chest pain, no palpitations - Gastrointestinal: No nausea vomiting or diarrhea [facility] Surgical History History of tooth extraction Family History Maternal Grandfather Prostate CA Maternal Grandmother Dementia Alzheimer disease Depression Paternal Grandmother Dementia Alzheimer disease Sister Lupus Social History Household Members: Friend(s) Housing: House Alcohol intake: current Alcohol intake frequency: holidays/special occasions only Patient Tobacco Use Status: Current everyday Tobacco user Tobacco use type: Cigarette Cigarette Packs Per Day: 0.5 Years Smoked: 23 Packs Per Year: 12 e-Cigarette/Vaping Use: Never Used service: No Current occupational status: employed Cognitive needs: No Hearing needs: No Vision needs: No Questionnaire Thrive Questionnaire Date Thrive assessed: 06/14/24 VINCENT-7 AMB Questionnaire VINCENT-7 Date VINCENT - 7 assessed: 06/14/24 Source: Developed by Drs. Eduardo Cartwright, Swetha Tapia, Jackson Thrasher and colleagues, with an educational paula from [employer]. Physical exam (Primary Care) Tobacco/Smoking Status: Tobacco use Status Tobacco use date assessed 10/11/24 12/08/24 10:31 Patient Tobacco Use Status Current everyday Tobacco 12/08/24 10:31 Tobacco use type Cigarette 12/08/24 10:31 e-Cigarette/Vaping Use Never Used 12/08/24 10:31 Thrive Assessment: Date of Thrive Assessment Date Thrive assessed 06/14/24 12/08/24 10:31 Telehealth Telehealth Telehealth Platform: [facility] Location of provider rendering services: practice address Location of patient: address on file Patient Identification confirmed using: Name, : Yes Telehealth method: video Patient verbally consented to treatment: Yes Patient verbally consented to billing insurance company: Yes Patient informed of any privacy concerns related to visit: Yes Minutes spent on Phone/Video with Pt.: 13 Coding Level of Care Code Tele Est Pt Level 3 (89981) Diagnoses Kidney disease, chronic, stage IV (GFR 15-29 ml/min) N18.4 LFT elevation R79.89 Assessment & Plan Assessment & Plan (1) Kidney disease, chronic, stage IV (GFR 15-29 ml/min): Code(s): N18.4 - Chronic kidney disease, stage 4 (severe) Category: Medical (2) LFT elevation: Code(s): R79.89 - Other specified abnormal findings of blood chemistry Category: Medical Plan Chief Complaint Recent worsening of kidney function. History of Present Illness The patient is a 49-year-old male presenting with worsening kidney function. Worsening kidney function: - The patient had previously normal kidney function noted in May. - In September, laboratory tests indicated an estimated glomerular filtration rate (eGFR) of 44 and a creatinine level of 1.6. - Recent laboratory results have shown further deterioration, with eGFR decreasing to 19 and creatinine increasing to 3.4. - The patient denies taking any chronic voct-xxg-dzjsrea analgesics like ibuprofen or naproxen, although he did take ibuprofen episodically for back pain from working on his car. - He reports anxiety upon receiving a call regarding the nephrology appointment for further evaluation, already scheduled for the of the . Medical History: - Slightly elevated liver enzymes. Medications: - Regular [employer] vitamins. Social History: - The patient has been attentive to nutritional intake, avoiding carbohydrates unless they are whole grains, and has eliminated salt and sugar from their diet. Diagnostic Results: - Labs: - May: Normal kidney function. - September: eGFR of 44, Creatinine of 1.6. - Recent: eGFR of 19, Creatinine of 3.4. - Liver enzymes are elevated but not specified. Problem List - Worsening Kidney Function - Elevated Liver Enzymes Patient Instructions - Discontinue all nqkn-cyn-ibineuc supplements. - Avoid the use of ibuprofen, naproxen, Aleve, and Motrin. - Increase fluid intake. - Attend nephrology appointment as scheduled for further evaluation.
== END 2024-12-08 10:44 | disposition home or self-care (01) ==
LOC: HO.HMCC 08:33
PROVIDERS: PCP Internal Medicine; Visit Provider Internal Medicine
DX: N18.4 Chronic kidney disease, stage 4 (severe) (principal); R79.89 Other specified abnormal findings of blood chemistry

== ENCOUNTER 2024-12-14 13:46 | Outpatient (REF) | payer BC, SELFPAY ==
[2024-12-14 17:22] LABS: MANUAL DIFF FLAG NO
[2024-12-14 17:31] LABS: Appearance Urine Clear; Glucose Urine UA Negative (Negative); PH 6.0 (5.0-9.0); Specific Gravity - Urine <= 1.005 (1.005-1.025); UMIC TRIGGER UA YES
[2024-12-14 17:44] LABS: Hematocrit 40.1 % (42.0-52.0); Hemoglobin 13.9 g/dl (14.0-18.0); Imm Gran Abs Auto 0.07 X10*3/uL (0.00-0.03); Imm Gran Pct Auto 0.5 % (0.0-0.4); Lymphocytes Absolute Auto 3.4 X10*3/uL (1.2-4.9); Mean Corpuscular HGB Conc 34.7 g/dl (31.0-36.0); Mean Corpuscular Hemoglobin 30.1 pg (27.0-33.0); Mean Corpuscular Volume 86.8 fL (80.0-98.0); NRBC Abs Auto 0.000 X10*3/uL (0.0-0.012); NRBC Pct Auto 0.0 /100WBC (0.0-0.2); Platelet Count 194 X10*3/uL (160-400); Red Blood Count 4.62 X10*6/uL (4.60-5.80); White Blood Count 14.7 X10*3/uL (4.8-10.8)
[2024-12-14 18:01] LABS: Anion Gap 16 (12-20); Blood Urea Nitrogen 40 mg/dL (9-16); Calcium 9.9 mg/dL (8.4-10.2); Carbon Dioxide 24 mmol/L (22-29); Chloride 100 mmol/L (96-108); Estimated Glomerular Filt Rate 17; Potassium 3.8 mmol/L (3.3-5.1); Sodium 136 mmol/L (135-145)
[2024-12-14 18:11] LABS: Total Protein Urine Random < 7 mg/dL (<12)
[2024-12-14 18:22] LABS: Parathyroid Hormone Intact 125.6 pg/mL (8.7-77.1)
[2024-12-15 14:23] LABS: Anti Glomerular Basement Memb <1.0 AI; Proteinase 3 PR3 Antibodies <1.0 AI
[2024-12-16 10:54] LABS: Anti Nuclear Antibody Screen NEGATIVE (NEGATIVE)
[2024-12-16 13:53] LABS: Neutrophil Cyto Ab Screen NEGATIVE (NEGATIVE)
[2024-12-16 22:13] LABS: Prot Elec - Albumin 4.8 g/dL (3.8-4.8); Prot Elec - Alpha1 0.5 g/dL (0.2-0.3); Prot Elec - Alpha2 0.9 g/dL (0.5-0.9); Prot Elec - Beta 1 0.4 g/dL (0.4-0.6); Prot Elec - Beta 2 0.3 g/dL (0.2-0.5); Prot Elec - Gamma 0.7 g/dL (0.8-1.7); Prot Elec - Total Protein 7.5 g/dL (6.1-8.1)
== END 2024-12-14 13:47 | disposition home or self-care (01) ==
LOC: HO.HHCL 13:46
PROVIDERS: PCP Internal Medicine; Visit Provider Internal Medicine Hypertension Specialist
DX: Z01.84 Encounter for antibody response examination (principal); I12.9 Hypertensive chronic kidney disease with stage 1 through stage 4 chronic kidney disease, or unspecified chronic kidney disease; N18.4 Chronic kidney disease, stage 4 (severe); E78.5 Hyperlipidemia, unspecified; F41.9 Anxiety disorder, unspecified; Z79.899 Other long term (current) drug therapy
CPT/HCPCS: 36415; 80048; 81001; 82550; 82570; 83520; 83970; 84100; 84156; 84165; 85025; 86021; 86036; 86038; 86160

== ENCOUNTER 2024-12-14 13:46 | Outpatient (AMB) | payer BC, SELFPAY ==
--- NOTE | 2024-12-14 13:51 | HO.NEPHOV ---
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 Accompanied by: Self / Same As Patient Allergies No Known Allergies (No Known Allergies*) Allergy (Verified 12/14/24 13:53) PFSH Surgical History History of tooth extraction Family History Maternal Grandfather Prostate CA Maternal Grandmother Dementia Alzheimer disease Depression Paternal Grandmother Dementia Alzheimer disease Sister Lupus Social History Household Members: Friend(s) Housing: House Alcohol intake: current Alcohol intake frequency: holidays/special occasions only Patient Tobacco Use Status: Current everyday Tobacco user Tobacco use type: Cigarette Cigarette Packs Per Day: 0.5 Years Smoked: 23 e-Cigarette/Vaping Use: Never Used service: No Current occupational status: employed Cognitive needs: No Hearing needs: No Vision needs: No Results Reviewed Nephrology Results: Hgb, (14.0-18.0) 14.8 g/dl 10/10/24 WBC, (4.8-10.8) 12.5 X10*3/uL H 10/10/24 Plt Count, (160-400) 210 X10*3/uL 10/10/24 Sodium, (135-145) 142 mmol/L 12/07/24 Potassium, (3.3-5.1) 4.0 mmol/L 12/07/24 Chloride, (96-108) 110 mmol/L H 12/07/24 Carbon Dioxide, (22-29) 22 mmol/L 12/07/24 BUN, (9-16) 39 mg/dL H 12/07/24 Creatinine, (0.5-1.4) 3.44 mg/dL H 12/07/24 Calcium, (8.4-10.2) 8.8 mg/dL 12/07/24 Assessment & Plan Assessment & Plan Orders: Orders Parathyroid Hormone Intact Today N18.4 - Chronic kidney disease, stage 4 (severe) Creatine Kinase Total Today N18.4 - Chronic kidney disease, stage 4 (severe) Total Protein Urine Random Today N18.4 - Chronic kidney disease, stage 4 (severe) US renal BI Today N18.4 - Chronic kidney disease, stage 4 (severe) Basic Metabolic Panel Today N18.4 - Chronic kidney disease, stage 4 (severe) Complete Blood Count Auto Diff Today N18.4 - Chronic kidney disease, stage 4 (severe) Phosphorus Today N18.4 - Chronic kidney disease, stage 4 (severe) UA and rflx microscopic Today N18.4 - Chronic kidney disease, stage 4 (severe) Creatinine Urine Today N18.4 - Chronic kidney disease, stage 4 (severe) Coding
--- NOTE | 2024-12-14 13:51 | HO.NEPHOV ---
Vital Signs 12/14/24 13:52 12/14/24 14:07 Height 5 ft 10 in Weight 177 lb BMI 25.4 BP 150/82 H 142/90 H Blood Pressure Location Lt brachial Rt brachial Position Sitting Sitting Pulse 79 Pulse Source Pulse Oximeter Pulse Oximetry (%) 98 Oxygen Delivery Method Room Air Intake Visit Reasons: INT: CKD STG 4 (STAT) Conf Allergies No Known Allergies (No Known Allergies*) Allergy (Verified 12/14/24 13:53) Medication List - Last Reconciled 12/14/24 by Tay Bill MD atenolol 25 mg PO DAILY 90 days escitalopram oxalate (Lexapro) 10 mg PO DAILY rosuvastatin 40 mg PO DAILY 90 days HPI Comments Details: The patient is a 49-year-old male presenting with decreased kidney function. GFR decreased from 44 to 19, monitored due to prediabetes. History of facet syndrome from a back injury seven years ago. Occasional Aleve use for pain, primarily uses Tylenol. Reports anxiety exacerbated [id number], with fatigue and anosmia. Takes Lexapro for anxiety. Family history includes possible kidney cancer in grandfather and lupus in sister. Denies regular NSAID use, no known medication allergies. Occasional alcohol use, non-smoker, diet free of processed foods, mindful of salt intake. No rash. No joint swelling. Urination- no hematuria. 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 - Substance Use: Occasional alcohol consumption, non-smoker - Diet: Avoids processed foods, mindful of salt intake FAMILY HISTORY: - Grandfather: Possible kidney cancer - Sister: Lupus without confirmed kidney involvement PFSH Surgical History History of tooth extraction Family History Maternal Grandfather Prostate CA Maternal Grandmother Dementia Alzheimer disease Depression Paternal Grandmother Dementia Alzheimer disease Sister Lupus Social History Household Members: Friend(s) Housing: House Alcohol intake: current Alcohol intake frequency: holidays/special occasions only Patient Tobacco Use Status: Current everyday Tobacco user Tobacco use type: Cigarette Cigarette Packs Per Day: 0.5 Years Smoked: 23 e-Cigarette/Vaping Use: Never Used service: No Current occupational status: employed Cognitive needs: No Hearing needs: No Vision needs: No Physical Exam Vital Signs: Last Vital Signs Pulse 79 12/14/24 13:52 BP 142/90 H 12/14/24 14:07 Pulse Ox 98 12/14/24 13:52 Oxygen Delivery Method Room Air 12/14/24 13:52 BMI result Body Mass Index 25.4 Const General: comfortable Nutritional Appearance: well nourished Orientation/consciousness: patient oriented x3 HEENT Head: No normal to inspection Mouth: moist mucous membranes Neck Neck: Yes supple and Yes no JVD Resp Auscultation: clear to auscultation bilaterally and no rales Cardio Jugular venous distension: no JVD Palpation: no palpable S3 and no palpable S4 Heart sounds: no rubs GI Palpation (GI): Soft to palpation and nontender Percussion: No Fluid wave present General: Yes no CVA tenderness Back/Spine/Pelvis Back: no CVA tenderness Skin General skin exam: no rashes or lesions noted Neuro General: patient oriented x3 Extrem General: Yes no pedal edema and No clubbing Results Reviewed Nephrology Results: Hgb, (14.0-18.0) 14.8 g/dl 10/10/24 WBC, (4.8-10.8) 12.5 X10*3/uL H 10/10/24 Plt Count, (160-400) 210 X10*3/uL 10/10/24 Sodium, (135-145) 142 mmol/L 12/07/24 Potassium, (3.3-5.1) 4.0 mmol/L 12/07/24 Chloride, (96-108) 110 mmol/L H 12/07/24 Carbon Dioxide, (22-29) 22 mmol/L 12/07/24 BUN, (9-16) 39 mg/dL H 12/07/24 Creatinine, (0.5-1.4) 3.44 mg/dL H 12/07/24 Calcium, (8.4-10.2) 8.8 mg/dL 12/07/24 Assessment & Plan Assessment & Plan (1) CKD (chronic kidney disease): Code(s): N18.9 - Chronic kidney disease, unspecified Category: Medical Plan 49 yr old man with MARYJANE Baseline cr 0.9 in May 2024 eGFR dropped to 4 4ml in September 2024 and 19 ml in Nov 2024 DDX R/o Obstruction AGN Other possiblities include- AiN, ATN Work up ordered including USG and serology In the mean time- NO nephrotoxins including NSAIDS Clinically no s/s of uremia Volume status acceptable. RTC 2-3 weeks Orders: Orders Parathyroid Hormone Intact Today N18.4 - Chronic kidney disease, stage 4 (severe) Creatine Kinase Total Today N18.4 - Chronic kidney disease, stage 4 (severe) Total Protein Urine Random Today N18.4 - Chronic kidney disease, stage 4 (severe) US renal BI Today N18.4 - Chronic kidney disease, stage 4 (severe) Myeloperoxidase Antibody Today N18.4 - Chronic kidney disease, stage 4 (severe) Complement C3 Today N18.4 - Chronic kidney disease, stage 4 (severe) Protein Electrophoresis, Serum Today N18.4 - Chronic kidney disease, stage 4 (severe) Basic Metabolic Panel Today N18.4 - Chronic kidney disease, stage 4 (severe) Complete Blood Count Auto Diff Today N18.4 - Chronic kidney disease, stage 4 (severe) Phosphorus Today N18.4 - Chronic kidney disease, stage 4 (severe) UA and rflx microscopic Today N18.4 - Chronic kidney disease, stage 4 (severe) Creatinine Urine Today N18.4 - Chronic kidney disease, stage 4 (severe) CRISSY Reflex Titer and Pattern Today N18.4 - Chronic kidney disease, stage 4 (severe) Neutrophil Cytoplasma Ab Today N18.4 - Chronic kidney disease, stage 4 (severe) Proteinase 3 PR3 Antibodies Today N18.4 - Chronic kidney disease, stage 4 (severe) Anti Glomerular Basement Memb Today N18.4 - Chronic kidney disease, stage 4 (severe) Complement C4 Today N18.4 - Chronic kidney disease, stage 4 (severe) Coding Level of Care Code New Pt Level 4 (46624) Diagnoses CKD (chronic kidney disease) N18.9
[2024-12-14 13:52] VITALS: BP 150/82; PULSE 79; O2SAT 98; BMI 25.4
[2024-12-14 14:07] VITALS: BP 142/90
== END 2024-12-14 14:13 | disposition home or self-care (01) ==
LOC: HO.HKAM 13:46
PROVIDERS: PCP Internal Medicine; Referring Provider Internal Medicine; Visit Provider Internal Medicine Hypertension Specialist
DX: N18.9 Chronic kidney disease, unspecified (principal)
CPT/HCPCS: 99204

== ENCOUNTER 2025-01-03 11:17 | Outpatient (AMB) | payer BC, SELFPAY ==
--- NOTE | 2025-01-03 11:24 | HO.NEPHOV_ITS ---
Vital Signs 01/03/25 11:25 Height 5 ft 10 in Weight 172 lb BMI 24.7 BP 134/80 Blood Pressure Location Rt brachial Position Sitting Pulse 75 Pulse Source Pulse Oximeter Pulse Oximetry (%) 99 Oxygen Delivery Method Room Air Intake Visit Reasons: 2-3 week f/u-LVM Rehabilitation Engineer Required: No Accompanied by: Self / Same As Patient Allergies No Known Allergies (No Known Allergies*) Allergy (Verified 01/03/25 11:26) Medication List - Last Reconciled 01/03/25 by Tay Bill MD atenolol 25 mg PO DAILY 90 days escitalopram oxalate (Lexapro) 10 mg PO DAILY rosuvastatin 40 mg PO DAILY 90 days HPI Comments Details: The patient is a 49-year-old male presenting with decreased kidney function. GFR decreased from 44 to 19, monitored due to prediabetes. History of facet syndrome from a back injury seven years ago. Occasional Aleve use for pain, primarily uses Tylenol. Reports anxiety exacerbated [id number], with fatigue and anosmia. Takes Le xapro for anxiety. Family history includes possible kidney cancer in grandfather and lupus in sister. Denies regular NSAID use, no known medication allergies. Occasional alcohol use, non-smoker, diet free of processed foods, mindful of salt intake. No rash. No joint swelling. Urination- no hematuria. 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 - Substance Use: Occasional alcohol consumption, non-smoker - Diet: Avoids processed foods, mindful of salt intake FAMILY HISTORY: - Grandfather: Possible kidney cancer - Sister: Lupus without confirmed kidney involvement 01/03/25 The patient is a 49-year-old male presenting with urinary retention and decreased kidney function. Reports persistent fatigue and an episode of nausea and vomiting after blowing his nose, with no other illness symptoms. Describes full bladder sensation before urination urge, indicating retention. Ultrasound scheduled to check for obstruction affecting kidney function. Kidney function tests show slight improvement but remain suboptimal; other tests normal, excluding intrinsic disease. Family history of kidney cancer noted, grandfather diagnosed at 86. Social History: - Fluid intake: Patient reports drinking a 16-ounce glass of water every hour, which was reduced due to excess. Family History: - Grandfather: Kidney cancer diagnosed at age 86. Diagnostic Results: - Kidney function tests: Slight improvement noted, but still below desired levels. - Other kidney-related tests: Normal results, indicating no intrinsic kidney disease. PFSH Surgical History History of tooth extraction Family History Maternal Grandfather Prostate CA Maternal Grandmother Dementia Alzheimer disease Depression Paternal Grandmother Dementia Alzheimer disease Sister Lupus Social History Household Members: Friend(s) Housing: House Alcohol intake: current Alcohol intake frequency: holidays/special occasions only Patient Tobacco Use Status: Current everyday Tobacco user Tobacco use type: Cigarette Cigarette Packs Per Day: 0.5 Years Smoked: 23 e-Cigarette/Vaping Use: Never Used service: No Current occupational status: employed Cognitive needs: No Hearing needs: No Vision needs: No Physical Exam Vital Signs: Last Vital Signs Pulse 75 01/03/25 11:25 BP 134/80 01/03/25 11:25 Pulse Ox 99 01/03/25 11:25 Oxygen Delivery Method Room Air 01/03/25 11:25 BMI result Body Mass Index 24.7 Results Reviewed Nephrology Results: Hgb, (14.0-18.0) 13.9 g/dl L 12/14/24 WBC, (4.8-10.8) 14.7 X10*3/uL H 12/14/24 Plt Count, (160-400) 194 X10*3/uL 12/14/24 Sodium, (135-145) 136 mmol/L 12/14/24 Potassium, (3.3-5.1) 3.8 mmol/L 12/14/24 Chloride, (96-108) 100 mmol/L 12/14/24 Carbon Dioxide, (22-29) 24 mmol/L 12/14/24 BUN, (9-16) 40 mg/dL H 12/14/24 Creatinine, (0.5-1.4) 3.82 mg/dL H 12/14/24 Calcium, (8.4-10.2) 9.9 mg/dL Δ 12/14/24 Phosphorus, (2.7-4.5) 3.3 mg/dL 12/14/24 PTH Intact, (8.7-77.1) 125.6 pg/mL H 12/14/24 Urine Protein, (Neg-Trace) Negative mg/dL 12/14/24 Urine Creatinine 43.37 mg/dL 12/14/24 Renal US 01/03/25 Assessment & Plan Assessment & Plan (1) CKD (chronic kidney disease): Code(s): N18.9 - Chronic kidney disease, unspecified Category: Medical Plan 49 yr old man with MARYJANE Baseline cr 0.9 in May 2024 eGFR dropped to 4 4ml in September 2024 and 19 ml in Nov 2024 DDX R/o Obstruction No evidence of AGN or ATN Obtain USG STAT today In the mean time- NO nephrotoxins including NSAIDS Clinically no s/s of uremia Volume status acceptable. RTC 2-3 weeks Orders: Orders renal BI 01/03/25 N17.9 - Acute kidney failure, unspecified Coding Level of Care Code Est Pt Level 4 (71812) Diagnoses CKD (chronic kidney disease) N18.9
[2025-01-03 11:25] VITALS: BP 134/80; PULSE 75; O2SAT 99; BMI 24.7
== END 2025-01-03 11:59 | disposition home or self-care (01) ==
LOC: HO.HKA 11:18
PROVIDERS: PCP Internal Medicine; Visit Provider Internal Medicine Hypertension Specialist
DX: N18.9 Chronic kidney disease, unspecified (principal)
CPT/HCPCS: 99214

== ENCOUNTER 2025-01-03 14:24 | Outpatient (REF) | payer BC, SELFPAY ==
--- NOTE | ~2025-01-03 | US_ITS ---
EXAMINATION: US RETROPERITONEAL LIMITED (RENAL ONLY) CLINICAL INFORMATION: Acute kidney failure, unspecified. N17.9. COMPARISON: None available. TECHNIQUE: Real-time ultrasound kidneys using grayscale technique. FINDINGS: RIGHT KIDNEY: 11 x 7 x 5 cm (SAG x AP x TRV). Volume: 213 cc. Normal echotexture. Normal renal cortical thickness. No dilated pelvicalyceal system and proximal ureter. LEFT KIDNEY: 13 x 7 x 6 cm (SAG x AP x TRV). Volume: 236 cc. Normal echotexture. Normal renal cortical thickness. Dilatation of the pelvicalyceal system and proximal ureter. BLADDER: Fluid-filled Bilateral ureteral jets are not demonstrated. Prevoid bladder volume is 2519 mL. Patient is unable to void. There is a 4.5 cm hyperechoic abnormality at the distal right ureter near the ureterovesical junction. The left distal ureter is not depicted. US/US renal BI IMPRESSION: Bilateral hydroureteronephrosis, severe. Questionable 4.5 cm obstructing calculus distal right ureter versus lesion. Consider a complete CT abdomen and pelvis evaluation. The ct mri technologist reported to the requesting physician with these results and patient to be transported to the emergency department.. Electronically signed by: Jaydon Meadows MD 01/03/2025 03:21 PM EDT
== END 2025-01-03 14:25 | disposition home or self-care (01) ==
LOC: HO.HMGCX 14:24
PROVIDERS: PCP Internal Medicine; Visit Provider Internal Medicine Hypertension Specialist
DX: N17.9 Acute kidney failure, unspecified (principal)
CPT/HCPCS: 76775

== ENCOUNTER → 2025-01-03 14:26 | Outpatient (BNV) | payer BC, SELFPAY | PROVIDERS: PCP Internal Medicine; Visit Provider Radiology Diagnostic Radiology | DX: N13.39 Other hydronephrosis (principal) | CPT/HCPCS: 76775 ==

== ENCOUNTER 2025-01-09 | Outpatient (REF) | payer BC, SELFPAY | END 2025-01-09 00:01 | disposition home or self-care (01) | LOC: CF | PROVIDERS: PCP Internal Medicine; Visit Provider Urology | DX: N20.1 Calculus of ureter (principal); N13.30 Unspecified hydronephrosis; R31.29 Other microscopic hematuria; F17.200 Nicotine dependence, unspecified, uncomplicated; N31.9 Neuromuscular dysfunction of bladder, unspecified | CPT/HCPCS: 51702; 51798; 81003 ==

== ENCOUNTER 2025-01-09 10:41 | Outpatient (AMB) | payer BC, SELFPAY ==
--- NOTE | 2025-01-09 10:44 | MHC.OFFVIS ---
Intake Visit Reasons: severe hydronephrosis/ possible retention Intake Note: New patient presents today for initial visit for severe hydronephrosis/possible retention Urology Medication:None Blood Thinner:None Antibiotic Allergies:None PVR:99ml Allergies No Known Allergies (No Known Allergies*) Allergy (Verified 01/09/25 10:51) Medication List - Last Reconciled 01/09/25 by Alexa Geiger MD atenolol 25 mg PO DAILY 90 days escitalopram oxalate (Lexapro) 10 mg PO DAILY rosuvastatin 40 mg PO DAILY 90 days tamsulosin (Flomax) 0.4 mg PO BEDTIME HPI Comments Details: Sherwin is a 49-year-old male who is here as a new patient evaluation. The patient is followed by nephrology for chronic kidney disease. He was last seen by Nephrology on 01/03/2025 at which time he was sent for an ultrasound that was significant for bilateral hydronephrosis and urinary retention greater than 2000 mL in the bladder with question of 4.5 cm right ureteral stone vs bladder stone. History of Present Illness The patient is a 49-year-old male presenting with a new patient evaluation due to chronic kidney disease and associated urinary issues. The patient has been followed by nephrology for chronic kidney disease, initially identified during a routine checkup with his primary care physician. His kidney function declined from above 60 to 40, and subsequently to 19, prompting referral to a cylinder press operator helper. An ultrasound performed on 01/03/25 revealed bilateral hydronephrosis and significant urinary retention, with a suspicion of a right ureteral stone. The patient was advised to seek emergency care due to bladder retention but opted to wait for further evaluation. The patient reports difficulty with urination, requiring effort to empty the bladder, and delayed sensation of fullness, which he attributes to a past back injury. This issue has become more noticeable following the kidney-related concerns. Results - Ultrasound: Bilateral hydronephrosis, urinary retention, possible 4.5 cm right ureteral stone vs bladder stone - Bladder scan: Post-void residual greater than 999 mL - Catheterized urine >2L drained. Blanca left in place Plan 1. Chronic Kidney Disease - Continue follow-up with nephrology for management of kidney function. 2. Bilateral Hydronephrosis - Plan further imaging with CT to assess the extent and cause of hydronephrosis. 3. Urinary Retention may be secondary to neurogenic bladder - Catheterization performed to relieve bladder retention. - Prescribed tamsulosin 0.4 mg to take at bedtime - Discussed self-catheterization as a potential management strategy vs blanca. 4. Possible Ureteral Stone vs bladder stone - Follow-up office cystoscopy planned [facility] Surgical History History of tooth extraction Family History Maternal Grandfather Prostate CA Maternal Grandmother Dementia Alzheimer disease Depression Paternal Grandmother Dementia Alzheimer disease Sister Lupus Social History Household Members: Friend(s) Housing: House Alcohol intake: current Alcohol intake frequency: holidays/special occasions only Patient Tobacco Use Status: Current everyday Tobacco user Tobacco use type: Cigarette Cigarette Packs Per Day: 0.5 Years Smoked: 23 e-Cigarette/Vaping Use: Never Used service: No Current occupational status: employed Cognitive needs: No Hearing needs: No Vision needs: No Review of Systems Const All systems reviewed & are unremarkable except as noted in HPI and below Reports no additional complaints Eyes Reports no additional complaints ENT Reports no additional complaints Card Reports no additional complaints Resp Reports no additional complaints GI Reports no additional complaints Reports as per HPI Musc Reports no additional complaints Skin/Breast Reports system reviewed and no additional complaints, except as documented Neuro Reports no additional complaints Psych Reports no additional complaints Endo Reports no additional complaints Simon/Lymph Reports no additional complaints Aller/Immun Reports no additional complaints Physical Exam Const General: healthy appearing, no acute distress and well developed Orientation/consciousness: patient oriented x3 HEENT Head: Yes normocephalic and Yes atraumatic Eyes Conjunctivae: conjunctivae normal Neck Neck: Yes normal visual inspection Chest Chest palpation & inspection: normal inspection of the chest Resp Effort & Inspection: normal respiratory effort Cardio Rate: regular rate GI Inspection: Yes normal to inspection Palpation (GI): Soft to palpation Penis: normal penis Scrotum: scrotum normal Neuro General: patient oriented x3 Psych Appearance: grossly normal Affect: normal affect Office Procedures Bladder/Catheter Procedure Details: 16 Belgian straight catheter inserted into bladder. Patient tolerated insertion with some discomfort. emptied out 2,000ml of urine. Educated patient on the options between a chronic blanca catheter or CIC. Patient wants to try the blanca catheter for a month and return in 4 weeks and will decide then if he wants to CIC or continue with the catheter. Dr. Burgos in room to discuss plan. New 16Fr edward blanca catheter inserted with 10ml and flip valve. Patient tolerated. Educated him to empty bladder every 3-4 hours. Provided him with a night bag and educated him how to attach. [id number] Temporary Bladder Catheter Procedure code (CPT) selection complete Post Void Residual Post Residual Void Post Void Residual (PVR): 999 23902-Aclv Void Residual by ultrasound Results Reviewed Results Reviewed: Date of Service: 01/03/25 EXAMINATION: US RETROPERITONEAL LIMITED (RENAL ONLY) CLINICAL INFORMATION: Acute kidney failure, unspecified. N17.9. COMPARISON: None available. TECHNIQUE: Real-time ultrasound kidneys using grayscale technique. FINDINGS: RIGHT KIDNEY: 11 x 7 x 5 cm (SAG x AP x TRV). Volume: 213 cc. Normal echotexture. Normal renal cortical thickness. No dilated pelvicalyceal system and proximal ureter. LEFT KIDNEY: 13 x 7 x 6 cm (SAG x AP x TRV). Volume: 236 cc. Normal echotexture. Normal renal cortical thickness. Dilatation of the pelvicalyceal system and proximal ureter. BLADDER: Fluid-filled Bilateral ureteral jets are not demonstrated. Prevoid bladder volume is 2519 mL. Patient is unable to void. There is a 4.5 cm hyperechoic abnormality at the distal right ureter near the ureterovesical junction. The left distal ureter is not depicted. IMPRESSION: Bilateral hydroureteronephrosis, severe. Questionable 4.5 cm obstructing calculus distal right ureter versus lesion. Consider a complete CT abdomen and pelvis evaluation. The production control technologist reported to the requesting physician with these results and patient to be transported to the emergency department.. Assessment & Plan Assessment & Plan (1) Bilateral hydronephrosis: Code(s): N13.30 - Unspecified hydronephrosis Category: Medical (2) Ureteral stone: Code(s): N20.1 - Calculus of ureter Category: Medical (3) Microscopic hematuria: Code(s): R31.29 - Other microscopic hematuria Category: Medical (4) Nicotine dependence: Code(s): F17.200 - Nicotine dependence, unspecified, uncomplicated Category: Medical (5) Neurogenic bladder: Code(s): N31.9 - Neuromuscular dysfunction of bladder, unspecified Category: Medical Plan Plan 1. Chronic Kidney Disease - Continue follow-up with nephrology for management of kidney function. 2. Bilateral Hydronephrosis - Plan further imaging with CT to assess the extent and cause of hydronephrosis. 3. Urinary Retention may be secondary to neurogenic bladder - Catheterization performed to relieve bladder retention. - Prescribed tamsulosin 0.4 mg to take at bedtime - Discussed self-catheterization as a potential management strategy vs blanca. 4. Possible Ureteral Stone vs bladder stone - Follow-up office cystoscopy planned Orders: Orders CT kidney stone Today N13.30 - Unspecified hydronephrosis, N20.1 - Calculus of ureter AMB Urinalysis Automated Today Z13.9 - Encounter for screening, unspecified AMB Post Void Residual by ultrasound Today N31.9 - Neuromuscular dysfunction of bladder, unspecified AMB Bladder/Catheter Procedure Today N13.30 - Unspecified hydronephrosis, N17.9 - Acute kidney failure, unspecified, N18.4 - Chronic kidney disease, stage 4 (severe), N18.9 - Chronic kidney disease, unspecified, N31.9 - Neuromuscular dysfunction of bladder, unspecified, R39.198 - Other difficulties with micturition Medications: New tamsulosin (Flomax) 0.4 mg PO BEDTIME 30 caps 3RF Patient Instructions: The patient had an opportunity to ask questions regarding treatment plan. The patient expressed understanding and agreement with the above treatment plan. The patient is aware they should contact our office by phone for worsening of their current condition or the appearance of new symptoms. Compliance is encouraged with any medications and followup testing that is ordered. It is a privilege to be allowed the opportunity to participate in the urologic care of your patient. If you have any questions or concerns regarding treatment for the above conditions please do not hesitate to contact me. The office telephone contact is [phone]. This note is constructed in part using voice recognition software. While every effort has been made to ensure accuracy computer repair technician errors may have been included. Yours sincerely, Alexa Geiger MD Scribe Plan - Not visible on output: Patient was informed and verbally consented to the use of an ambient scribe for clinic note documentation during this visit. Coding Level of Care Code New Pt Level 4 (13791) Diagnoses Bilateral hydronephrosis N13.30 Ureteral stone N20.1 Microscopic hematuria R31.29 Nicotine dependence F17.200 Neurogenic bladder N31.9 CPT Codes Bladder/Catheter Procedure - CPT: 83652-Guregq Temporary Bladder Catheter ([id number]) Post Residual Void - PVR CPT Code: 10457-Jngv Void Residual by ultrasound ([id number])
== END 2025-01-09 11:55 | disposition home or self-care (01) ==
LOC: HO.HUSH 10:42
PROVIDERS: PCP Internal Medicine; Visit Provider Urology
DX: N13.30 Unspecified hydronephrosis (principal); N20.1 Calculus of ureter; R31.29 Other microscopic hematuria; F17.200 Nicotine dependence, unspecified, uncomplicated; N31.9 Neuromuscular dysfunction of bladder, unspecified; Z13.9 Encounter for screening, unspecified
CPT/HCPCS: 51702; 99204

== ENCOUNTER 2025-01-10 09:39 | Outpatient (AMB) | payer BC, SELFPAY ==
[2025-01-10 09:47] VITALS: BP 120/80; PULSE 91; RESP 19; TEMP 36.8; O2SAT 99; BMI 23.1
--- NOTE | 2025-01-10 09:47 | A.OFFPC_ITS ---
Vital Signs 01/10/25 09:47 Height 5 ft 10 in Weight 161 lb BMI 23.1 BP 120/80 Blood Pressure Location Rt brachial Position Sitting Respiration 19 Pulse 91 Pulse Source Pulse Oximeter Temp 98.3 F Temp Source Oral Pulse Oximetry (%) 99 Oxygen Delivery Method Room Air Intake Visit Reasons: 3m follow up Allergies No Known Allergies (No Known Allergies*) Allergy (Verified 01/10/25 09:48) Medication List - Last Reconciled 01/10/25 by Micah Alvarez MD atenolol 25 mg PO DAILY 90 days escitalopram oxalate (Lexapro) 10 mg PO DAILY rosuvastatin 40 mg PO DAILY 90 days tamsulosin (Flomax) 0.4 mg PO BEDTIME Tobacco use date assessed: 01/10/25 Dental Screening Dental Screen Date: 10/11/24 HPI 3m follow up HPI Details History The patient is a 49-year-old male presenting with chronic kidney disease, suspected ureteral obstruction, and associated symptoms. Chronic Kidney Disease: - Documented increase in serum creatinin e to 3.82 mg/dL with a glomerular filtration rate (GFR) of 17 mL/min as of December 14. - History of nephrology follow-up with d lilagnosis confirmed and plan made for further evaluation. - Associated severe decrease in kidney f unction noted over time. - Reports of significant weight loss fro m 192.4 lbs in September to 161 lbs currently. Suspected Ureteral Obstruction: - Presence of bilateral hydronephrosis d ocumented on recent ultrasound. - Ultrasound findings suggestive of a 4. 5 cm obstructive calculus or lesion in the distal right ureter. - Symptoms include hematuria and severe lower urinary tract discomfort. Prostatic Hypertrophy: - Patient reports recent catheter placem ent due to urinary retention. - Ongoing management with tamsulosin ini tiated. - History of urology follow-up; recent c oncerns of catheter-associated discomfort and hematuria. Anxiety: - Managed with Lexapro 10 mg, which the patient prefers not to increase despite issues with memory. Lipid Disorder: - On rosuvastatin 40 mg, advised to temp orarily discontinue during the current health evaluation. Hypertension: - Adequately controlled with atenolol 25 mg; recent blood pressure reading of 120/80. Medical History: - Chronic kidney disease. - Prostatic hypertrophy. - Anxiety. - Lipid disorder. - Hypertension. - Leukocytosis under hematology evaluati on. Medications: - Atenolol 25 mg for hypertension. - Lexapro 10 mg for anxiety. - Rosuvastatin 40 mg for lipid disorder (held temporarily). - Tamsulosin for prostatic hypertrophy. Social History: - Reports significant weight loss, likel y related to chronic illness; previous w eight 192.4 lbs in September now 161 lbs. - Current nutrition consists of chicken, vegetables, grains, and fruit. - Reports difficulty tasting food; trial ed nasal wash with some improvement. - Employment status impacted by health, seeking [facility] coverage for missed work due to medical issues. Problem List - Chronic kidney disease - Suspected ureteral obstruction - Prostatic hypertrophy - Anxiety - Lipid disorder - Hypertension - Leukocytosis Diagnostic results - Labs: - Serum creatinine 3.82 mg/dL (e levated). - Glomerular filtration rate (GFR) 17 mL /min (decreased). - Tests and Diagnostics: - Ultrasound in dicating bilateral hydronephrosis, suspect 4.5 cm obstructive calculus or lesion in distal right ureter. [place] of Care - Nephrology follow-up indicates staging and further diagnostics for chronic kidney disease. - Urology handling management of prostat ic hypertrophy and suspected ureteral obstruction. - Hematology evaluating leukocytosis. Patient Instructions - Continue Lexapro 10 mg as prescribed; do not increase dose. - Hold rosuvastatin temporarily. - Avoid nephrotoxic medications such as NSAIDs; Tylenol is acceptable for pain. - Follow up with nephrology on January 17. - Attend scheduled urology appointment n ext month. - Await CT scan scheduling for further e valuation of ureteral obstruction. - Bring [facility] paperwork for work absences related to health. next apt if needed Review of Systems General: No fever no chills neurological: No headaches no dizziness ear nose throat: No sore throat no hearing difficulty no ear pain cardiovascular: No syncope, no chest pain, no palpitations gastrointestinal: No nausea vomiting or diarrhea skin: No new complaints Physical Exam general: Appears fatigued, reports feeling unwell HEENT: Reports headache neck: Supple respiratory system: Able to talk in full sentences, no audible wheeze no stridor cardiovascular: S1-S2 RRR gastrointestinal: Reports pain due to catheter insertion extremities: No new findings KNUCKLER: Alert awake oriented x3 motor intact skin: Normal turgor [facility] Surgical History History of tooth extraction Family History Maternal Grandfather Prostate CA Maternal Grandmother Dementia Alzheimer disease Depression Paternal Grandmother Dementia Alzheimer disease Sister Lupus Social History Household Members: Friend(s) Housing: House Alcohol intake: current Alcohol intake frequency: holidays/special occasions only Patient Tobacco Use Status: Current everyday Tobacco user Tobacco use type: Cigarette Cigarette Packs Per Day: 0.5 Years Smoked: 23 e-Cigarette/Vaping Use: Never Used service: No Current occupational status: employed Cognitive needs: No Hearing needs: No Vision needs: No Questionnaire PHQ-9 Over the last 2 weeks, how often have you been bothered by any of the following problems? 1. Little interest or pleasure in doing things: not at all 2. Feeling down, depressed, or hopeless: not at all 3. Trouble falling or staying asleep, or sleeping too much: not at all 4. Feeling tired or having little energy: not at all 5. Poor appetite or overeating: not at all 6. Feeling bad about yourself - or that you are a failure or have let yourself or your family down: not at all 7. Trouble concentrating on things, such as reading the newspaper or watching te levision: not at all 8. Moving or speaking so slowly that other people could have noticed. Or the opposite - being so fidgety or restless that you have been moving around a lot more than usual: not at all 9. Thoughts that you would be better off or of hurting yourself in some way: not at all Total score: 0 Depression Screening Interpretation: Negative Depression Screening Done: Yes 85564 - PHQ-9 Billing: Yes Source: Developed by Drs. Eduardo Cartwright, Swetha Tapia, Jackson Thrasher and colleagues, with an educational paula from [employer] Thrive Questionnaire Date Thrive assessed: 06/12/24 I am a: Patient What is your living situation today?: I have a steady place to live Within the past 12 months, did the food you bought not last and you didn't have the money to get more?: Never true Within the past 12 months, did you worry whether your food would run out before you got money to buy more?: Never true Do you have trouble paying for medicines?: No Do you have trouble getting transportation to medical appointments?: No Do you have trouble paying your heating and electricity bill?: No Do you have trouble taking care of your child, family member or friend?: No Do you have trouble with day-to-day activities such as bathing, preparing meals, shopping, managing finances, etc.?: No Are you currently unemployed and looking for a job?: No Are you interested in more education?: No Please select the resources that you would like help with: None Currently or been in a relationship where the following occur: No concerns reported THRIVE Score: 0 VINCENT-7 AMB Questionnaire VINCENT-7 Date VINCENT - 7 assessed: 06/14/24 Feeling nervous, anxious, or on edge: 0 = Not at all Not being able to stop or control worryin = Not at all Worrying too much about different things: 0 = Not at all Trouble relaxin = Not at all Being so restless that it is hard to sit still: 0 = Not at all Becoming easily annoyed or irritable: 0 = Not at all Feeling afraid as if something awful might happen: 0 = Not at all Total VINCENT-7 score (0-4 normal; 5-9 mild; 10-14 moderate; 15-21 severe): 0 Source: Developed by Drs. Eduardo Cartwright, Swetha Tapia, Jackson Thrasher and colleagues, with an educational paula from [employer] VINCENT-7 Assessment Billing VINCENT-7 Assessment Tool: VINCENT-7 Assessment 91992 Physical exam (Primary Care) Vital Signs: Last Vital Signs Temp 98.3 F 01/10/25 09:47 Pulse 91 01/10/25 09:47 Resp 19 01/10/25 09:47 BP 120/80 01/10/25 09:47 Pulse Ox 99 01/10/25 09:47 Oxygen Delivery Method Room Air 01/10/25 09:47 BMI result Body Mass Index 23.1 Tobacco/Smoking Status: Tobacco use Status Tobacco use date assessed 01/10/25 01/10/25 09:51 Patient Tobacco Use Status Current everyday Tobacco 01/10/25 09:51 Tobacco use type Cigarette 01/10/25 09:51 e-Cigarette/Vaping Use Never Used 01/10/25 09:51 PHQ-9: PHQ-9 Score PHQ-9: Total score 0 01/10/25 10:13 Depression Screening Interpretation: Negative Thrive Assessment: Date of Thrive Assessment Date Thrive assessed 06/12/24 01/10/25 09:51 Currently or been in a relationship where the following occur: No concerns reported Coding Level of Care Code Est Pt Level 5 (10850) Diagnoses Weight loss R63.4 Kidney disease, chronic, stage IV (GFR 15-29 ml/min) N18.4 Primary hypertension I10 Hypertension type: primary hypertension Bilateral hydronephrosis N13.30 Ureteral stone N20.1 Leukocytosis, unspecified type D72.829 Leukocytosis type: unspecified Elevated creatine kinase level R74.8 Tobacco use disorder F17.200 Additional Codes PHQ-9 - 15194 - PHQ-9 Billing: Yes ([id number]) VINCENT-7 Assessment Billing - VINCENT-7 Assessment Tool: VINCENT-7 Assessment 57511 ([id number]) Time Spent (min) 40 Comment review Nephro/ Uro/ notesm imaging, labs, chart, face to face, coordination of care Assessment & Plan Assessment & Plan (1) Weight loss: Code(s): R63.4 - Abnormal weight loss Category: Medical (2) Kidney disease, chronic, stage IV (GFR 15-29 ml/min): Code(s): N18.4 - Chronic kidney disease, stage 4 (severe) Category: Medical (3) Hypertension: Code(s): I10 - Essential (primary) hypertension Category: Medical Qualifiers: Hypertension type: primary hypertension Qualified Code(s): I10 - Essential (primary) hypertension (4) Bilateral hydronephrosis: Code(s): N13.30 - Unspecified hydronephrosis Category: Medical (5) Ureteral stone: Code(s): N20.1 - Calculus of ureter Category: Medical (6) Leukocytosis: Code(s): D72.829 - Elevated white blood cell count, unspecified Category: Medical Qualifiers: Leukocytosis type: unspecified Qualified Code(s): D72.829 - Elevated white blood cell count, unspecified (7) Elevated creatine kinase level: Code(s): R74.8 - Abnormal levels of other serum enzymes Category: Medical (8) Tobacco use disorder: Code(s): F17.200 - Nicotine dependence, unspecified, uncomplicated Category: Medical Plan History The patient is a 49-year-old male presenting with chronic kidney disease, suspected ureteral obstruction, and associated symptoms. Chronic Kidney Disease: - Documented increase in serum creatinine to 3.82 mg/dL with a glomerular filtration rate (GFR) of 17 mL/min as of December 14. - History of nephrology follow-up with diagnosis confirmed and plan made for further evaluation. - Associated severe decrease in kidney function noted over time. - Reports of significant weight loss from 192.4 lbs in September to 161 lbs currently. Suspected Ureteral Obstruction: - Presence of bilateral hydronephrosis documented on recent ultrasound. - Ultrasound findings suggestive of a 4.5 cm obstructive calculus or lesion in the distal right ureter. - Symptoms include hematuria and severe lower urinary tract discomfort. Prostatic Hypertrophy: - Patient reports recent catheter placement due to urinary retention. - Ongoing management with tamsulosin initiated. - History of urology follow-up; recent concerns of catheter-associated discomfort and hematuria. Anxiety: - Managed with Lexapro 10 mg, which the patient prefers not to increase despite issues with memory. Lipid Disorder: - On rosuvastatin 40 mg, advised to temporarily discontinue during the current health evaluation. Hypertension: - Adequately controlled with atenolol 25 mg; recent blood pressure reading of 120/80. Medical History: - Chronic kidney disease. - Prostatic hypertrophy. - Anxiety. - Lipid disorder. - Hypertension. - Leukocytosis under hematology evaluation. Medications: - Atenolol 25 mg for hypertension. - Lexapro 10 mg for anxiety. - Rosuvastatin 40 mg for lipid disorder (held temporarily). - Tamsulosin for prostatic hypertrophy. Social History: - Reports significant weight loss, likely related to chronic illness; previous weight 192.4 lbs in September now 161 lbs. - Current nutrition consists of chicken, vegetables, grains, and fruit. - Reports difficulty tasting food; trialed nasal wash with some improvement. - Employment status impacted by health, seeking [facility] coverage for missed work due to medical issues. Problem List - Chronic kidney disease - Suspected ureteral obstruction - Prostatic hypertrophy - Anxiety - Lipid disorder - Hypertension - Leukocytosis Diagnostic results - Labs: - Serum creatinine 3.82 mg/dL (elevated). - Glomerular filtration rate (GFR) 17 mL/min (decreased). - Tests and Diagnostics: - Ultrasound indicating bilateral hydronephrosis, suspect 4.5 cm obstructive calculus or lesion in distal right ureter. [place] of Care - Nephrology follow-up indicates staging and further diagnostics for chronic kidney disease. - Urology handling management of prostatic hypertrophy and suspected ureteral obstruction. - Hematology evaluating leukocytosis. Patient Instructions - Continue Lexapro 10 mg as prescribed; do not increase dose. - Hold rosuvastatin temporarily. - Avoid nephrotoxic medications such as NSAIDs; Tylenol is acceptable for pain. - Follow up with nephrology on January 17. - Attend scheduled urology appointment next month. - Await CT scan scheduling for further evaluation of ureteral obstruction. - Bring [facility] paperwork for work absences related to health. next apt if needed Medications: Discontinued rosuvastatin Discontinued Reason: Doctor's Order 40 mg PO DAILY 90 days 90 tabs 1RF
== END 2025-01-10 10:30 | disposition home or self-care (01) ==
LOC: HO.HMCC 09:40
PROVIDERS: PCP Internal Medicine; Visit Provider Internal Medicine
DX: R63.4 Abnormal weight loss (principal); I12.9 Hypertensive chronic kidney disease with stage 1 through stage 4 chronic kidney disease, or unspecified chronic kidney disease; N18.4 Chronic kidney disease, stage 4 (severe); N13.30 Unspecified hydronephrosis; N20.1 Calculus of ureter; D72.829 Elevated white blood cell count, unspecified; R74.8 Abnormal levels of other serum enzymes; F17.200 Nicotine dependence, unspecified, uncomplicated

== ENCOUNTER → 2025-01-10 09:39 | Outpatient (BNVA) | payer BC, SELFPAY | PROVIDERS: PCP Internal Medicine; Visit Provider Internal Medicine | DX: N40.1 Benign prostatic hyperplasia with lower urinary tract symptoms (principal); R63.4 Abnormal weight loss; I12.9 Hypertensive chronic kidney disease with stage 1 through stage 4 chronic kidney disease, or unspecified chronic kidney disease; R33.8 Other retention of urine; N13.30 Unspecified hydronephrosis; N18.4 Chronic kidney disease, stage 4 (severe); N20.1 Calculus of ureter; D72.829 Elevated white blood cell count, unspecified; R74.8 Abnormal levels of other serum enzymes; F17.210 Nicotine dependence, cigarettes, uncomplicated | CPT/HCPCS: 96127 ==

== ENCOUNTER 2025-01-18 10:42 | Outpatient (REF) | payer BC, SELFPAY ==
[2025-01-18 14:15] LABS: Anion Gap 11 (12-20); Blood Urea Nitrogen 34 mg/dL (9-16); Calcium 9.3 mg/dL (8.4-10.2); Carbon Dioxide 26 mmol/L (22-29); Chloride 110 mmol/L (96-108); Estimated Glomerular Filt Rate 31; Potassium 3.9 mmol/L (3.3-5.1); Sodium 143 mmol/L (135-145)
== END 2025-01-18 10:43 | disposition home or self-care (01) ==
LOC: HO.HMGCLDS 10:42
PROVIDERS: PCP Internal Medicine; Visit Provider Internal Medicine Hypertension Specialist
DX: N18.9 Chronic kidney disease, unspecified (principal)
CPT/HCPCS: 36415; 80048

== ENCOUNTER 2025-01-24 10:49 | Outpatient (AMB) | payer BC, SELFPAY ==
[2025-01-24 10:56] VITALS: BP 96/64; PULSE 84; O2SAT 98; BMI 22.7
--- NOTE | 2025-01-24 10:56 | HO.NEPHOV_ITS ---
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 GFR decreased from 44 to 19, monitored due to prediabetes. History of facet syndrome from a back injury seven years ago. Occasional Aleve use for pain, primarily uses Tylenol. Reports anxiety exacerbated [id number], with fatigue and anosmia. Takes Lexapro for anxiety. Family history includes possible kidney cancer in grandfather and lupus in sister. Denies regular NSAID use, no known medication allergies. Occasional alcohol use, non-smoker, diet free of processed foods, mindful of salt intake. No rash. No joint swelling. Urination- no hematuria. Feeling of fullness + MEDICAL HISTORY: - Chronic Kidney Disease - Prediabetes - Anxiety - Facet Syndrome - Hypertension MEDICATIONS: - Lexapro for anxiety - Lovastatin for hyperlipidemia - Atenolol for hypertension SOCIAL HISTORY: - Employment: Works in [employer] services at [employer] - Substance Use: Occasional alcohol consumption, non-smoker - Diet: Avoids processed foods, mindful of salt intake FAMILY HISTORY: - Grandfather: Possible kidney cancer - Sister: Lupus without confirmed kidney involvement 01/03/25 The patient is a 49-year-old male presenting with urinary retention and decreased kidney function. Reports persistent fatigue and an episode of nausea and vomiting after blowing his nose, with no other illness symptoms. Describes full bladder sensation before urination urge, indicating retention. Ultrasound scheduled to check for obstruction affecting kidney function. Kidney function tests show slight improvement but remain suboptimal; other tests normal, excluding intrinsic disease. Family history of kidney cancer noted, grandfather diagnosed at 86. Social History: - Fluid intake: Patient reports drinking a 16-ounce glass of water every hour, which was reduced due to excess. Family History: - Grandfather: Kidney cancer diagnosed at age 86. Diagnostic Results: - Kidney function tests: Slight improvement noted, but still below desired levels. - Other kidney-related tests: Normal results, indicating no intrinsic kidney disease. 01/24/25 - The patient is a 49-year-old male presenting with acute kidney injury due to obstructive uropathy. - Farley catheter placed due to obstructive uropathy; discomfort noted. - Kidney function improving; creatinine increased from 17% to 31%. - Scheduled cystoscopy in February for bladder evaluation. - Low blood pressure noted; tamsulosin caused dizziness and fall. - Atenolol use for three years; - Significant weight loss from 197 to 150 pounds. - Diet includes chicken, vegetables, grains; prediabetes noted. PFSH Surgical History History of tooth extraction Family History Maternal Grandfather Prostate CA Maternal Grandmother Dementia Alzheimer disease Depression Paternal Grandmother Dementia Alzheimer disease Sister Lupus Social History Household Members: Friend(s) Housing: House Alcohol intake: current Alcohol intake frequency: holidays/special occasions only Patient Tobacco Use Status: Current everyday Tobacco user Tobacco use type: Cigarette Cigarette Packs Per Day: 0.5 Years Smoked: 23 e-Cigarette/Vaping Use: Never Used service: No Current occupational status: employed Cognitive needs: No Hearing needs: No Vision needs: No Physical Exam Vital Signs: Last Vital Signs Pulse 84 01/24/25 10:56 BP 96/64 01/24/25 10:56 Pulse Ox 98 01/24/25 10:56 Oxygen Delivery Method Room Air 01/24/25 10:56 BMI result Body Mass Index 22.7 Comfortable Neck supple no JVD. Lungs entry equal no rales. Heart S1-S2 heard no gallop or rub. Abdomen soft nontender. Neuro alert awake oriented. No asterixis. Extremities no edema. Const General: comfortable Nutritional Appearance: well nourished Orientation/consciousness: patient oriented x3 HEENT Head: No normal to inspection Mouth: moist mucous membranes Neck Neck: Yes supple and Yes no JVD Resp Auscultation: clear to auscultation bilaterally and no rales Cardio Jugular venous distension: no JVD Palpation: no palpable S3 and no palpable S4 Heart sounds: no rubs GI Palpation (GI): Soft to palpation and nontender Percussion: No Fluid wave present General: Yes no CVA tenderness Back/Spine/Pelvis Back: no CVA tenderness Skin General skin exam: no rashes or lesions noted Neuro General: patient oriented x3 Extrem General: Yes no pedal edema and No clubbing Results Reviewed Nephrology Results: Hgb, (14.0-18.0) 13.9 g/dl L 12/14/24 WBC, (4.8-10.8) 14.7 X10*3/uL H 12/14/24 Plt Count, (160-400) 194 X10*3/uL 12/14/24 Sodium, (135-145) 143 mmol/L 01/18/25 Potassium, (3.3-5.1) 3.9 mmol/L 01/18/25 Chloride, (96-108) 110 mmol/L H 01/18/25 Carbon Dioxide, (22-29) 26 mmol/L 01/18/25 BUN, (9-16) 34 mg/dL H 01/18/25 Creatinine, (0.5-1.4) 2.26 mg/dL H 01/18/25 Calcium, (8.4-10.2) 9.3 mg/dL Δ 01/18/25 Phosphorus, (2.7-4.5) 3.3 mg/dL 12/14/24 PTH Intact, (8.7-77.1) 125.6 pg/mL H 12/14/24 Urine Protein, (Neg-Trace) Negative mg/dL 12/14/24 Urine Creatinine 43.37 mg/dL 12/14/24 Renal US 01/03/25 Assessment & Plan Assessment & Plan (1) CKD (chronic kidney disease): Code(s): N18.9 - Chronic kidney disease, unspecified Category: Medical Plan 49 yr old man with MARYJANE Baseline cr 0.9 in May 2024 eGFR dropped to 4 4ml in September 2024 and 19 ml in Nov 2024 MARYJANE due to Obstruction s/p Farley Cr is improving AWait work up Hypotension DC Atenolol Orders: Orders Basic Metabolic Panel 1 Week N18.9 - Chronic kidney disease, unspecified Basic Metabolic Panel 01/18/25 N18.9 - Chronic kidney disease, unspecified Coding Level of Care Code Est Pt Level 4 (99440) Diagnoses CKD (chronic kidney disease) N18.9
== END 2025-01-24 11:09 | disposition home or self-care (01) ==
LOC: HO.HKA 10:50
PROVIDERS: PCP Internal Medicine; Visit Provider Internal Medicine Hypertension Specialist
DX: N18.9 Chronic kidney disease, unspecified (principal)
CPT/HCPCS: 99214

== ENCOUNTER → 2025-02-07 08:23 | Outpatient (BNVA) | payer BC, SELFPAY | PROVIDERS: PCP Internal Medicine; Visit Provider Urology | DX: R39.198 Other difficulties with micturition (principal); N31.9 Neuromuscular dysfunction of bladder, unspecified | CPT/HCPCS: 51700; 51798 ==

== ENCOUNTER 2025-02-25 07:46 | Outpatient (REF) | payer BC, SELFPAY ==
--- NOTE | ~2025-02-25 | CT_ITS ---
CLINICAL HISTORY: N20.1 - Calculus of ureter CT abdomen and pelvis without contrast Comparison: None provided Findings: The lung bases are clear. There are multiple circumscribed hepatic lesions, incompletely evaluated on the current exam. The gallbladder and solid organs are otherwise within normal limits. No renal stones. No bowel obstruction, pneumoperitoneum, or pneumatosis. There is a Farley catheter in position. Urinary bladder wall is concentrically thickened. Correlate for cystitis. Pelvic contents otherwise unremarkable. Normal appendix. No acute fracture. IMPRESSION: 1. Urinary bladder wall changes possibly related to cystitis. Clinical follow-up recommended. 2. Indeterminate hepatic lesions. Consider sonography to further characterize. This document has been electronically signed by: Betito Mcintyre MD on 02/27/2025 08:44:52
== END 2025-02-25 07:47 | disposition home or self-care (01) ==
LOC: HO.CT 07:46
PROVIDERS: PCP Internal Medicine; Visit Provider Urology
DX: N20.1 Calculus of ureter (principal); N13.30 Unspecified hydronephrosis
CPT/HCPCS: 74176

== ENCOUNTER → 2025-02-25 07:47 | Outpatient (BNV) | payer BC, SELFPAY | PROVIDERS: PCP Internal Medicine; Visit Provider Specialist | DX: N20.1 Calculus of ureter (principal) | CPT/HCPCS: 74176 ==

== ENCOUNTER 2025-03-06 11:19 | Outpatient (REF) | payer BC, SELFPAY ==
[2025-03-06 14:21] LABS: Anion Gap 11 (12-20); Blood Urea Nitrogen 13 mg/dL (9-16); Calcium 9.6 mg/dL (8.4-10.2); Carbon Dioxide 27 mmol/L (22-29); Chloride 106 mmol/L (96-108); Estimated Glomerular Filt Rate 40; Potassium 4.0 mmol/L (3.3-5.1); Sodium 140 mmol/L (135-145)
== END 2025-03-06 11:20 | disposition home or self-care (01) ==
LOC: HO.HMGCLDS 11:19
PROVIDERS: PCP Internal Medicine; Visit Provider Internal Medicine Hypertension Specialist
DX: N18.9 Chronic kidney disease, unspecified (principal)
CPT/HCPCS: 36415; 80048

== ENCOUNTER 2025-03-07 11:36 | Outpatient (AMB) | payer BC, SELFPAY ==
[2025-03-07 11:38] VITALS: BP 112/70; PULSE 94; O2SAT 98; BMI 23.7
--- NOTE | 2025-03-07 11:38 | HO.NEPHOV ---
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 GFR decreased from 44 to 19, monitored due to prediabetes. History of facet syndrome from a back injury seven years ago. Occasional Aleve use for pain, primarily uses Tylenol. Reports anxiety exacerbated [id number], with fatigue and anosmia. Takes Lexapro for anxiety. Family history includes possible kidney cancer in grandfather and lupus in sister. Denies regular NSAID use, no known medication allergies. Occasional alcohol use, non-smoker, diet free of processed foods, mindful of salt intake. No rash. No joint swelling. Urination- no hematuria. Feeling of fullness + MEDICAL HISTORY: - Chronic Kidney Disease - Prediabetes - Anxiety - Facet Syndrome - Hypertension MEDICATIONS: - Lexapro for anxiety - Lovastatin for hyperlipidemia - Atenolol for hypertension SOCIAL HISTORY: - Employment: Works in [employer] services at [employer] - Substance Use: Occasional alcohol consumption, non-smoker - Diet: Avoids processed foods, mindful of salt intake FAMILY HISTORY: - Grandfather: Possible kidney cancer - Sister: Lupus without confirmed kidney involvement 01/03/25 The patient is a 49-year-old male presenting with urinary retention and decreased kidney function. Reports persistent fatigue and an episode of nausea and vomiting after blowing his nose, with no other illness symptoms. Describes full bladder sensation before urination urge, indicating retention. Ultrasound scheduled to check for obstruction affecting kidney function. Kidney function tests show slight improvement but remain suboptimal; other tests normal, excluding intrinsic disease. Family history of kidney cancer noted, grandfather diagnosed at 86. Social History: - Fluid intake: Patient reports drinking a 16-ounce glass of water every hour, which was reduced due to excess. Family History: - Grandfather: Kidney cancer diagnosed at age 86. Diagnostic Results: - Kidney function tests: Slight improvement noted, but still below desired levels. - Other kidney-related tests: Normal results, indicating no intrinsic kidney disease. 01/24/25 - The patient is a 49-year-old male presenting with acute kidney injury due to obstructive uropathy. - Blanca catheter placed due to obstructive uropathy; discomfort noted. - Kidney function improving; creatinine increased from 17% to 31%. - Scheduled cystoscopy in February for bladder evaluation. - Low blood pressure noted; tamsulosin caused dizziness and fall. - Atenolol use for three years; - Significant weight loss from 197 to 150 pounds. - Diet includes chicken, vegetables, grains; prediabetes noted. 03/07/25 The patient is a 49-year-old male presenting for follow-up on urinary obstruction and MARYJANE MARYJANE resolving Still has blanca The patient has a history of hypertension, which was previously managed with atenolol, but the medication was discontinued due to low blood pressure readings. Blood pressure has since improved, and the patient is no longer taking the medication. A CT scan revealed a nodule in the liver, which was the focus of recent imaging studies. REPLACED BY [facility] Surgical History History of tooth extraction Family History Maternal Grandfather Prostate CA Maternal Grandmother Dementia Alzheimer disease Depression Paternal Grandmother Dementia Alzheimer disease Sister Lupus Social History Household Members: Friend(s) Housing: House Alcohol intake: current Alcohol intake frequency: holidays/special occasions only Patient Tobacco Use Status: Current everyday Tobacco user Tobacco use type: Cigarette Cigarette Packs Per Day: 0.5 Years Smoked: 23 e-Cigarette/Vaping Use: Never Used service: No Current occupational status: employed Cognitive needs: No Hearing needs: No Vision needs: No Physical Exam Vital Signs: Last Vital Signs Pulse 94 03/07/25 11:38 BP 112/70 03/07/25 11:38 Pulse Ox 98 03/07/25 11:38 Oxygen Delivery Method Room Air 03/07/25 11:38 BMI result Body Mass Index 23.7 Const General: comfortable Nutritional Appearance: well nourished Orientation/consciousness: patient oriented x3 HEENT Head: No normal to inspection Mouth: moist mucous membranes Neck Neck: Yes supple and Yes no JVD Resp Auscultation: clear to auscultation bilaterally and no rales Cardio Jugular venous distension: no JVD Palpation: no palpable S3 and no palpable S4 Heart sounds: no rubs GI Palpation (GI): Soft to palpation and nontender Percussion: No Fluid wave present General: Yes no CVA tenderness Back/Spine/Pelvis Back: no CVA tenderness Skin General skin exam: no rashes or lesions noted Neuro General: patient oriented x3 Extrem General: Yes no pedal edema and No clubbing Results Reviewed Nephrology Results: Sodium, (135-145) 140 mmol/L 03/06/25 Potassium, (3.3-5.1) 4.0 mmol/L 03/06/25 Chloride, (96-108) 106 mmol/L 03/06/25 Carbon Dioxide, (22-29) 27 mmol/L 03/06/25 BUN, (9-16) 13 mg/dL 03/06/25 Creatinine, (0.5-1.4) 1.83 mg/dL H 03/06/25 Calcium, (8.4-10.2) 9.6 mg/dL 03/06/25 Renal US 01/03/25 Assessment & Plan Assessment & Plan (1) CKD (chronic kidney disease): Code(s): N18.9 - Chronic kidney disease, unspecified Category: Medical Plan 49 yr old man with MARYJANE Baseline cr 0.9 in May 2024 eGFR dropped to 4 4ml in September 2024 and 19 ml in Nov 2024 MARYJANE due to Obstruction s/p Blanca Cr is improving work up in progress Hypotension REsolved after stopping Atenolol Current BP acceptable Orders: Orders Basic Metabolic Panel 3 Months I10 - Essential (primary) hypertension, N17.9 - Acute kidney failure, unspecified, N18.9 - Chronic kidney disease, unspecified Coding Level of Care Code Est Pt Level 4 (61898) Diagnoses CKD (chronic kidney disease) N18.9
== END 2025-03-07 11:56 | disposition home or self-care (01) ==
LOC: HO.HKA 11:37
PROVIDERS: PCP Internal Medicine; Visit Provider Internal Medicine Hypertension Specialist
DX: N18.9 Chronic kidney disease, unspecified (principal)
CPT/HCPCS: 99214

== ENCOUNTER 2025-03-09 10:23 | Outpatient (AMB) | payer BC, SELFPAY ==
--- NOTE | 2025-03-09 10:41 | A.OFFVIS_ITS ---
Intake Visit Reasons: VT/Cysto/CT Intake Note: Patient presents today for VT/Cystoscopy/CT * 02/[address] Urology Medication:None Blood Thinner:None Antibiotic Allergies:None Lot#:[id number] Exp:10/04/27 Allergies No Known Allergies (No Known Allergies*) Allergy (Verified 03/09/25 10:41) HPI Comments Details: 03/09/25--Sherwin is here for office cystoscopy he has urinary retention with a Blanca in place here for further evaluation. History of Present Illness The patient is a 49-year-old male presenting with urinary retention. The condition is associated with an enlarged prostate, which may be contributing to the obstruction of urine flow. The patient reports not feeling the normal sensation of bladder fullness, which may be related to prediabetes or a previous back injury affecting nerve function. Discussed etiology may have neurogenic and obstructive component. The patient has undergone imaging, including a CT scan, which did not reveal any kidney stones but showed indeterminate liver lesions. 30 minutes spent in review of records pertaining to this visit and including [id number] discussion with the patient and documentation of this visit. Results - CT scan: No kidney stones, indeterminate liver lesions noted - Cystoscopy findings: prostatic urethra bilobar enlargement bulbous urethra WNL, no suspicious bladder lesions visualized Plan 1. Urinary Retention - discussed etiology may have neurogenic and obstructive component. - Discussed green light laser surgery - suprapubic catheter placement during surgery 2. Indeterminate Liver Lesions - incidential finding 01/24/25--Sherwin is a 49-year-old male who is here as a new patient evaluation. The patient is followed by nephrology for chronic kidney disease. He was last seen by Nephrology on 01/03/2025 at which time he was sent for an ultrasound that was significant for bilateral hydronephrosis and urinary retention greater than 2000 mL in the bladder with question of 4.5 cm right ureteral stone vs bladder stone. History of Present Illness The patient is a 49-year-old male presenting with a new patient evaluation due to chronic kidney disease and associated urinary issues. The patient has been followed by nephrology for chronic kidney disease, initially identified during a routine checkup with his primary care physician. His kidney function declined from above 60 to 40, and subsequently to 19, prompting referral to a microbiological laboratory technician. An ultrasound performed on 01/03/25 revealed bilateral hydronephrosis and significant urinary retention, with a suspicion of a right ureteral stone. The patient was advised to seek emergency care due to bladder retention but opted to wait for further evaluation. The patient reports difficulty with urination, requiring effort to empty the bl adder, and delayed sensation of fullness, which he attributes to a past back injury. This issue has become more noticeable following the kidney-related concerns. Results - Ultrasound: Bilateral hydronephrosis, urinary retention, possible 4.5 cm right ureteral stone vs bladder stone - Bladder scan: Post-void residual greater than 999 mL - Catheterized urine >2L drained. Blanca left in place Plan 1. Chronic Kidney Disease - Continue follow-up with nephrology for management of kidney function. 2. Bilateral Hydronephrosis - Plan further imaging with CT to assess the extent and cause of hydronephrosis. 3. Urinary Retention may be secondary to neurogenic bladder - Catheterization performed to relieve bladder retention. - Prescribed tamsulosin 0.4 mg to take at bedtime - Discussed self-catheterization as a potential management strategy vs blanca. 4. Possible Ureteral Stone vs bladder stone - Follow-up office cystoscopy planned REPLACED BY [facility] Surgical History History of tooth extraction Family History Maternal Grandfather Prostate CA Maternal Grandmother Dementia Alzheimer disease Depression Paternal Grandmother Dementia Alzheimer disease Sister Lupus Social History Household Members: Friend(s) Housing: House Alcohol intake: current Alcohol intake frequency: holidays/special occasions only Patient Tobacco Use Status: Current everyday Tobacco user Tobacco use type: Cigarette Cigarette Packs Per Day: 0.5 Years Smoked: 23 e-Cigarette/Vaping Use: Never Used service: No Current occupational status: employed Cognitive needs: No Hearing needs: No Vision needs: No Office Procedures Bladder/Catheter Procedure Details: Patient presents to office for voiding trial s/p Urinary retention. Patient here for cystoscopy- cysto prep done and patient had cysto. patient unable to void. Dr. Burgos in Room to see patient. Plan to re-insert blanca catheter. New 16Fr with 10mls and flip valve inserted. patient tolerated insertion. Plan for patient to have cath change every 4 weeks. 21676-[id number] Temporary Bladder Catheter Procedure code (CPT) selection complete Cystoscopy Consent Discussed risk and benefit or proposed procedure with the patient. Information consent for procedure given to the patient. Discussed technical aspects, risks, benefits and alternatives in full. Addressed all of the patient's questions and concerns regarding the procedure. The patient demonstrated knowledge and understanding. They wish to proceed with this procedure. Preparation The patient was prepped in the usual manner. A head orthopedic team physician was present and in the room. Genitalia was prepped with betadine solution in a sterile manner. Lidocaine Jelly 2% was placed into the urethra and 16Fr flexible Olympus cystos cope was inserted into the meatus after adequate lubrication. Procedure Time out per protocol performed. The flexible cystoscope is passed transurethrally: The bladder was inspected in its entirety with utilization retroflexion displaying: Tumor(s): no suspicious bladder lesions visualized Trabeculation: Mild Mucosal Erthema: mild Orifices: normal shape and position Urethra: normal Cystoscopy findings: prostatic urethra bilobar enlargement bulbous urethra WNL, no suspicious bladder lesions visualized [id number]-[id number] DISPOSABLE SCOPE URO-G FLEXIBLE SCOPE Procedure code (CPT) selection complete Office Meds lidocaine HCl 2 % mucosal jelly in applicator Performing Provider: Alexa Geiger MD Performing Location: [facility] [place] [facility] Administered by: Jeffrey Hart LPN on 03/09/25 10:59 Dose Route Admin Location Dispensed Lot Number Expiration Date ND Oil Heater Operator 10 mL intra-urethral 20 mL ciprofloxacin HCl 500 mg tablet Performing Provider: Alexa Geiger MD Performing Location: [facility] [place] [facility] Administered by: Jeffrey Hart LPN on 03/09/25 10:59 Dose Route Admin Location Dispensed Lot Number Expiration Date ND Oil Heater Operator 500 mg PO 1 tab phenazopyridine 200 mg tablet Performing Provider: Alexa Geiger MD Performing Location: [facility] [place] [facility] Administered by: Jeffrey Hart LPN on 03/09/25 10:59 Dose Route Admin Location Dispensed Lot Number Expiration Date ND Oil Heater Operator 200 mg PO 1 tab Results AMB Urinalysis, Automated UA Leukoctes 500 Ki/uL Last Edit by Elana Jenkins on 03/09/25 15:39 UA Nitrite Positive Last Edit by Elana Jenkins on 03/09/25 15:39 UA Urobilinogen 0.2 mg/dL Last Edit by Elana Mooretiz on 03/09/25 15:39 UA Protein 30 mg/dL Last Edit by Elana Mooretiz on 03/09/25 15:39 UA pH 6.5 Last Edit by Elana Jenkins on 03/09/25 15:39 UA Blood 80 Cornelio/uL Last Edit by Elana Jenkins on 03/09/25 15:39 UA Specific [place] 1.010 Last Edit by Elana Jenkins on 03/09/25 15:39 UA Ketone Negative Last Edit by Elana Jenkins on 03/09/25 15:39 UA Bilirubin 0 mg/dL Last Edit by Elana Jenkins on 03/09/25 15:39 UA Glucose 0 mg/dL Last Edit by Elana Jenkins on 03/09/25 15:39 Results Reviewed Results Reviewed: Laboratory Last Values Urine pH (Auto) 6.5 03/09/25 13:39 Specific [place] (Auto) 1.010 03/09/25 13:39 Urine Protein (Auto) 30 mg/dL 03/09/25 13:39 Glucose (UA)(Auto) 0 mg/dL 03/09/25 13:39 Urine Ketones (Auto) Negative 03/09/25 13:39 Urine Blood (Auto) 80 Cornelio/uL 03/09/25 13:39 Urine Nitrite (Auto) Positive 03/09/25 13:39 Urine Bilirubin (Auto) 0 mg/dL 03/09/25 13:39 Urine Urobilinogen (Auto) 0.2 mg/dL 03/09/25 13:39 Leukocyte Esterase (Auto) 500 Ki/uL 03/09/25 13:39 Date of Service: 02/25/25 Reason for Exam: N20.1 - Calculus of ureter CLINICAL HISTORY: N20.1 - Calculus of ureter CT abdomen and pelvis without contrast Comparison: None provided Findings: The lung bases are clear. There are multiple circumscribed hepatic lesions, incompletely evaluated on the current exam. The gallbladder and solid organs are otherwise within normal limits. No renal stones. No bowel obstruction, pneumoperitoneum, or pneumatosis. There is a Blanca catheter in position. Urinary bladder wall is concentrically thickened. Correlate for cystitis. Pelvic contents otherwise unremarkable. Normal appendix. No acute fracture. IMPRESSION: 1. Urinary bladder wall changes possibly related to cystitis. Clinical follow-up recommended. 2. Indeterminate hepatic lesions. Consider sonography to further characterize. Date of Service: 01/03/25 EXAMINATION: US RETROPERITONEAL LIMITED (RENAL ONLY) CLINICAL INFORMATION: Acute kidney failure, unspecified. N17.9. COMPARISON: None available. TECHNIQUE: Real-time ultrasound kidneys using grayscale technique. FINDINGS: RIGHT KIDNEY: 11 x 7 x 5 cm (SAG x AP x TRV). Volume: 213 cc. Normal echotexture. Normal renal cortical thickness. No dilated pelvicalyceal system and proximal ureter. LEFT KIDNEY: 13 x 7 x 6 cm (SAG x AP x TRV). Volume: 236 cc. Normal echotexture. Normal renal cortical thickness. Dilatation of the pelvicalyceal system and proximal ureter. BLADDER: Fluid-filled Bilateral ureteral jets are not demonstrated. Prevoid bladder volume is 2519 mL. Patient is unable to void. There is a 4.5 cm hyperechoic abnormality at the distal right ureter near the ureterovesical junction. The left distal ureter is not depicted. IMPRESSION: Bilateral hydroureteronephrosis, severe. Questionable 4.5 cm obstructing calculus distal right ureter versus lesion. Consider a complete CT abdomen and pelvis evaluation. The instrumentation technologist reported to the requesting physician with these results and patient to be transported to the emergency department.. Assessment & Plan Assessment & Plan (1) Microscopic hematuria: Code(s): R31.29 - Other microscopic hematuria Category: Medical (2) Nicotine dependence: Code(s): F17.200 - Nicotine dependence, unspecified, uncomplicated Category: Medical (3) Neurogenic bladder: Code(s): N31.9 - Neuromuscular dysfunction of bladder, unspecified Category: Medical (4) BPH (benign prostatic hyperplasia): Code(s): N40.0 - Benign prostatic hyperplasia without lower urinary tract symptoms Category: Medical (5) Urinary retention: Code(s): R33.9 - Retention of urine, unspecified Category: Medical Plan Green light laser, SP tube blanca replaced Discussed [facility]IC teaching, fu with Nurse Orders: Orders AMB Bladder/Catheter Procedure 03/09/25 R39.198 - Other difficulties with micturition, N31.9 - Neuromuscular dysfunction of bladder, unspecified AMB Urinalysis Automated 03/09/25 Z13.9 - Encounter for screening, unspecified Urine Culture 03/09/25 N31.9 - Neuromuscular dysfunction of bladder, unspecified, R39.198 - Other difficulties with micturition, R31.29 - Other microscopic hematuria AMB Cystoscopy 03/09/25 R31.29 - Other microscopic hematuria, R39.198 - Other difficulties with micturition, N13.30 - Unspecified hydronephrosis, N31.9 - Neuromuscular dysfunction of bladder, unspecified Medications: New sulfamethoxazole-trimethoprim 800-160 mg (Bactrim DS) 1 tab PO BID 14 tabs 0RF 7 days Patient Instructions: The patient had an opportunity to ask questions regarding treatment plan. The patient expressed understanding and agreement with the above treatment plan. The patient is aware they should contact our office by phone for worsening of their current condition or the appearance of new symptoms. Compliance is encouraged with any medications and followup testing that is ordered. It is a privilege to be allowed the opportunity to participate in the urologic care of your patient. If you have any questions or concerns regarding treatment for the above conditions please do not hesitate to contact me. The office telephone contact is [phone]. This note is constructed in part using voice recognition software. While every effort has been made to ensure accuracy bromination equipment operator errors may have been included. Yours sincerely, Alexa Geiger MD Scribe Plan - Not visible on output: Patient was informed and verbally consented to the use of an ambient scribe for clinic note documentation during this visit. Coding Level of Care Code Est Pt Level 4 (45183) Add On Problem Visit Only Diagnoses Microscopic hematuria R31.29 Nicotine dependence F17.200 Neurogenic bladder N31.9 BPH (benign prostatic hyperplasia) N40.0 Urinary retention R33.9 CPT Codes Bladder/Catheter Procedure - CPT: 90072-Fcurya Temporary Bladder Catheter ([id number]) Cystoscopy - CPT: 33006-Lnmbpbtofb ([id number])
== END 2025-03-09 13:15 | disposition home or self-care (01) ==
LOC: HO.HUSH 10:24
PROVIDERS: PCP Internal Medicine; Visit Provider Urology
DX: R31.29 Other microscopic hematuria (principal); F17.200 Nicotine dependence, unspecified, uncomplicated; N31.9 Neuromuscular dysfunction of bladder, unspecified; N40.0 Benign prostatic hyperplasia without lower urinary tract symptoms; R33.9 Retention of urine, unspecified
CPT/HCPCS: 52000; 99214

== ENCOUNTER 2025-03-09 10:23 | Outpatient (REF) | payer BC, SELFPAY | END 2025-03-09 10:24 | disposition home or self-care (01) | LOC: HO.LAB 10:23 | PROVIDERS: PCP Internal Medicine; Visit Provider Urology | DX: N20.1 Calculus of ureter (principal); N31.9 Neuromuscular dysfunction of bladder, unspecified; R39.198 Other difficulties with micturition; R31.29 Other microscopic hematuria | CPT/HCPCS: 87086; 87088; 87186 ==

== ENCOUNTER → 2025-04-11 09:17 | Outpatient (BNVA) | payer BC, SELFPAY | PROVIDERS: PCP Internal Medicine; Visit Provider Urology | DX: N31.9 Neuromuscular dysfunction of bladder, unspecified (principal) | CPT/HCPCS: 51702 ==